=== PATIENT | male | born 1940 | race Caucasian/White ===

== ENCOUNTER 2021-02-17 12:07 | Inpatient (IN) | payer OTHER, SELFPAY ==
[~2021-02-17] VITALS: Ht 182.9 cm; Wt 79.8 kg
[2021-02-17 12:19] VITALS: BP_SYST 126
[2021-02-17] MEDS ORDERED: NACL 0.9% 1,000 ML IV SCH (13:00)
[2021-02-17] MEDS ORDERED: NS 500 ML IV ONE (13:45)
[2021-02-17 15:08] LABS: MEAN CORPUSCULAR HEMOGLOBIN 34 pg (27-31); MEAN CORPUSCULAR HGB CONC 35 % (32-36); MEAN CORPUSCULAR VOLUME 98 fL (79.0-98.0); PLATELET COUNT (AUTO) 204 K/uL (130-430); RED CELL DISTRIBUTION WIDTH 15.6 % (9.0-15.0); WHITE BLOOD COUNT (AUTO) 7.6 K/uL (4.8-10.8)
[2021-02-17 15:18] LABS: HEMOGLOBIN 6.4 g/dL (14.0-18.0); RED BLOOD CELL COUNT(AUTO) 1.88 MIL/uL (4.2-6.2)
[2021-02-17 15:19] LABS: HEMATOCRIT 18.4 % (36-54)
[2021-02-17 15:23] LABS: ANION GAP 8 (5-15); CALCIUM 7.3 mg/dL (8.4-11.0); CHLORIDE 97 mmol/L (98-107); CREATININE 5.68 mg/dL (0.55-1.30); GLUCOSE 103 mg/dL (70-99); SODIUM SERUM 135 mmol/L (136-145); UREA NITROGEN, BLOOD 47 mg/dL (8-21)
[2021-02-17 15:25] LABS: PROTHROMBIN TIME 10.9 SECS (9.5-12.5)
[2021-02-17 15:32] LABS: ALANINE AMINOTRANSFERASE 19 U/L (12-78); ALBUMIN 2.7 g/dL (3.4-4.8); ASPARTATE AMINOTRANSFERASE 24 U/L (10-37); TOTAL BILIRUBIN 1.1 mg/dL (0.0-1.0)
[2021-02-17 18:45] VITALS: BP_SYST 126
[2021-02-17 20:00] VITALS: BP_SYST 155
[2021-02-17] MEDS ORDERED: cloNIDine HCL 0.1 MG TABLET GT PRN (20:45)
[2021-02-17] MEDS: DIPHENHYDRAMINE HCL 12.5 MG/5 ML UDC GT SCH (22:10)
[2021-02-18 01:22] VITALS: BP_SYST 141
[2021-02-18] MEDS ORDERED: LORA10TA7 GT (02:32)
[2021-02-18] MEDS ORDERED: GABA-529 GT (02:32)
[2021-02-18] MEDS ORDERED: LIP40 GT (02:32)
[2021-02-18] MEDS ORDERED: COLL100 GT (02:32)
[2021-02-18] MEDS ORDERED: FOLI-43 GT (02:32)
[2021-02-18] MEDS ORDERED: ALLO100T GT (02:32)
[2021-02-18] MEDS ORDERED: CARV3.1246 GT (02:32)
[2021-02-18] MEDS ORDERED: IPRA4AER INH (02:50)
[2021-02-18] MEDS ORDERED: ZINC50TA69 GT (02:50)
[2021-02-18] MEDS ORDERED: REN800 PO (02:50)
[2021-02-18] MEDS ORDERED: INSU100V SQ (02:50)
[2021-02-18] MEDS ORDERED: NEPH GT (02:50)
[2021-02-18 08:00] VITALS: BP_SYST 149
[2021-02-18] MEDS: DIPHENHYDRAMINE HCL 12.5 MG/5 ML UDC GT SCH ×3 (08:29→21:51)
[2021-02-18 09:51] LABS: ANION GAP 10 (5-15); CALCIUM 7.5 mg/dL (8.4-11.0); CHLORIDE 98 mmol/L (98-107); CREATININE 5.87 mg/dL (0.55-1.30); GLUCOSE 105 mg/dL (70-99); POTASSIUM 4.3 mmol/L (3.5-5.1); SODIUM SERUM 137 mmol/L (136-145); UREA NITROGEN, BLOOD 52 mg/dL (8-21)
[2021-02-18 10:00] LABS: BASOPHILS # (AUTO) 0.1 K/uL (0.0-0.2); BASOPHILS % (AUTO) 0.8 % (0.0-2.0); EOSINOPHILS # (AUTO) 0.2 K/uL (0.0-0.4); EOSINOPHILS % (AUTO) 2.3 % (0.0-4.0); LYMPHOCYTES % (AUTO) 11.9 % (20.5-51.5); MEAN CORPUSCULAR HEMOGLOBIN 34 pg (27-31); MEAN CORPUSCULAR HGB CONC 34 % (32-36); MEAN CORPUSCULAR VOLUME 99 fL (79.0-98.0); MONOCYTES # (AUTO) 0.9 K/uL (0.0-1.0); MONOCYTES % (AUTO) 10.3 % (1.7-9.3); NEUTROPHILS # (AUTO) 6.5 K/uL (1.8-7.7); NEUTROPHILS % (AUTO) 74.7 % (40.0-70.0); PLATELET COUNT (AUTO) 224 K/uL (130-430); RED CELL DISTRIBUTION WIDTH 19.9 % (9.0-15.0); WHITE BLOOD COUNT (AUTO) 8.7 K/uL (4.8-10.8)
[2021-02-18] MEDS ORDERED: DOCUSATE SODIUM 100 MG/10 ML UDC PO PRN (10:00)
[2021-02-18 10:03] LABS: RED BLOOD CELL COUNT(AUTO) 1.94 MIL/uL (4.2-6.2)
[2021-02-18 10:05] LABS: HEMATOCRIT 19.3 % (36-54); HEMOGLOBIN 6.6 g/dL (14.0-18.0)
[2021-02-18] MEDS: SEVELAMER CARBONATE 800 MG TABLET PO SCH ×2 (13:02→17:51)
[2021-02-18 14:00] VITALS: BP_SYST 118
[2021-02-18 19:20] VITALS: BP_SYST 148
[2021-02-18] MEDS: CARVEDILOL 3.125 MG TABLET (COREG) PO SCH (21:57)
[2021-02-18] MEDS: ATORVASTATIN 20 MG TABLET PO SCH (21:58)
[2021-02-19] VITALS: BP_SYST 138
[2021-02-19] MEDS ORDERED: LEVOFLOXACIN IN DEXTROSE 5 % 100 ML IV ONE ×2 (04:15→07:30)
[2021-02-19 07:43] LABS: MEAN CORPUSCULAR HEMOGLOBIN 34 pg (27-31); MEAN CORPUSCULAR HGB CONC 34 % (32-36); MEAN CORPUSCULAR VOLUME 100 fL (79.0-98.0); PLATELET COUNT (AUTO) 259 K/uL (130-430); RED BLOOD CELL COUNT(AUTO) 2.02 MIL/uL (4.2-6.2); RED CELL DISTRIBUTION WIDTH 22.2 % (9.0-15.0); WHITE BLOOD COUNT (AUTO) 9.6 K/uL (4.8-10.8)
[2021-02-19 08:00] VITALS: BP_SYST 133
[2021-02-19] MEDS: FOLIC ACID 1 MG TABLET PO SCH (09:04)
[2021-02-19] MEDS: ALLOPURINOL 100 MG TABLET (ZYLOPRIM) PO SCH (09:04)
[2021-02-19] MEDS: DIPHENHYDRAMINE HCL 12.5 MG/5 ML UDC GT SCH ×3 (09:04→21:43)
[2021-02-19] MEDS: NEPHROVITE, (FOLIC ACID/VITAMIN B COMP W-C 1 TAB) PO SCH (09:04)
[2021-02-19] MEDS: SEVELAMER CARBONATE 800 MG TABLET PO SCH ×3 (09:04→17:50)
[2021-02-19] MEDS: CARVEDILOL 3.125 MG TABLET (COREG) PO SCH ×2 (09:05→21:43)
[2021-02-19] MEDS: LORATADINE 10 MG TABLET PO SCH (09:05)
[2021-02-19 09:18] LABS: HEMATOCRIT 20.3 % (36-54); HEMOGLOBIN 6.9 g/dL (14.0-18.0)
[2021-02-19 11:31] LABS: ANION GAP 15 (5-15); CALCIUM 8.3 mg/dL (8.4-11.0); CHLORIDE 101 mmol/L (98-107); CREATININE 6.02 mg/dL (0.55-1.30); GLUCOSE 115 mg/dL (70-99); POTASSIUM 4.4 mmol/L (3.5-5.1); SODIUM SERUM 138 mmol/L (136-145); UREA NITROGEN, BLOOD 54 mg/dL (8-21)
[2021-02-19 12:28] VITALS: BP_SYST 148
[2021-02-19 14:03] LABS: BAND % (MANUAL) 6 % (0-6); EOSINOPHILS % (MANUAL) 1 % (0-7); LYMPHOCYTES % (MANUAL) 9 % (20-46); MONOCYTES % (MANUAL) 13 % (0-11)
[2021-02-19 14:04] LABS: BASOPHILS % (MANUAL) 0 % (0-2)
[2021-02-19 16:58] VITALS: BP_SYST 111
[2021-02-19 20:00] VITALS: BP_SYST 156
[2021-02-19] MEDS: ATORVASTATIN 20 MG TABLET PO SCH (21:43)
[2021-02-20 00:14] VITALS: BP_SYST 146
[2021-02-20 06:58] LABS: BASOPHILS # (AUTO) 0.1 K/uL (0.0-0.2); BASOPHILS % (AUTO) 0.5 % (0.0-2.0); EOSINOPHILS # (AUTO) 0.1 K/uL (0.0-0.4); HEMATOCRIT 29.2 % (36-54); LYMPHOCYTES # (AUTO) 1.2 K/uL (1.0-5.5); LYMPHOCYTES % (AUTO) 11.2 % (20.5-51.5); MEAN CORPUSCULAR HEMOGLOBIN 33 pg (27-31); MEAN CORPUSCULAR HGB CONC 34 % (32-36); MEAN CORPUSCULAR VOLUME 96 fL (79.0-98.0); MONOCYTES # (AUTO) 1.2 K/uL (0.0-1.0); MONOCYTES % (AUTO) 10.6 % (1.7-9.3); NEUTROPHILS # (AUTO) 8.4 K/uL (1.8-7.7); NEUTROPHILS % (AUTO) 76.7 % (40.0-70.0); PLATELET COUNT (AUTO) 243 K/uL (130-430); RED BLOOD CELL COUNT(AUTO) 3.04 MIL/uL (4.2-6.2); RED CELL DISTRIBUTION WIDTH 14.8 % (9.0-15.0); WHITE BLOOD COUNT (AUTO) 10.9 K/uL (4.8-10.8)
[2021-02-20 07:30] VITALS: BP_SYST 148
[2021-02-20 07:51] LABS: ANION GAP 11 (5-15); CALCIUM 8.2 mg/dL (8.4-11.0); CHLORIDE 103 mmol/L (98-107); CREATININE 5.83 mg/dL (0.55-1.30); GLUCOSE 102 mg/dL (70-99); PHOSPHORUS 5.1 mg/dL (2.7-4.5); POTASSIUM 5.2 mmol/L (3.5-5.1); SODIUM SERUM 139 mmol/L (136-145); UREA NITROGEN, BLOOD 58 mg/dL (8-21)
[2021-02-20] MEDS: FOLIC ACID 1 MG TABLET PO SCH (09:55)
[2021-02-20] MEDS: DIPHENHYDRAMINE HCL 12.5 MG/5 ML UDC GT SCH ×3 (09:55→22:02)
[2021-02-20] MEDS: SEVELAMER CARBONATE 800 MG TABLET PO SCH ×3 (09:55→17:36)
[2021-02-20] MEDS: CARVEDILOL 3.125 MG TABLET (COREG) PO SCH (09:55)
[2021-02-20] MEDS: ALLOPURINOL 100 MG TABLET (ZYLOPRIM) PO SCH (09:55)
[2021-02-20] MEDS: LORATADINE 10 MG TABLET PO SCH (09:55)
[2021-02-20] MEDS: NEPHROVITE, (FOLIC ACID/VITAMIN B COMP W-C 1 TAB) PO SCH (09:55)
[2021-02-20 11:00] LABS: TOTAL IRON BIND. CAPACITY 173 ug/dL (250-450)
[2021-02-20 12:23] VITALS: BP_SYST 141
[2021-02-20 16:40] VITALS: BP_SYST 130
[2021-02-20] MEDS: METOPROLOL TARTRATE 25 MG TABLET PO SCH (22:02)
[2021-02-21] VITALS (7 sets, daily range): BP systolic 116–148
[2021-02-21 07:03] LABS: BASOPHILS # (AUTO) 0.1 K/uL (0.0-0.2); BASOPHILS % (AUTO) 0.6 % (0.0-2.0); EOSINOPHILS # (AUTO) 0.1 K/uL (0.0-0.4); EOSINOPHILS % (AUTO) 0.5 % (0.0-4.0); HEMATOCRIT 30.4 % (36-54); HEMOGLOBIN 10.3 g/dL (14.0-18.0); LYMPHOCYTES # (AUTO) 1.4 K/uL (1.0-5.5); LYMPHOCYTES % (AUTO) 10.9 % (20.5-51.5); MEAN CORPUSCULAR HEMOGLOBIN 33 pg (27-31); MEAN CORPUSCULAR HGB CONC 34 % (32-36); MEAN CORPUSCULAR VOLUME 97 fL (79.0-98.0); MONOCYTES # (AUTO) 1.4 K/uL (0.0-1.0); MONOCYTES % (AUTO) 10.6 % (1.7-9.3); NEUTROPHILS # (AUTO) 10.2 K/uL (1.8-7.7); NEUTROPHILS % (AUTO) 77.4 % (40.0-70.0); PLATELET COUNT (AUTO) 291 K/uL (130-430); RED BLOOD CELL COUNT(AUTO) 3.14 MIL/uL (4.2-6.2); RED CELL DISTRIBUTION WIDTH 15.3 % (9.0-15.0); WHITE BLOOD COUNT (AUTO) 13.2 K/uL (4.8-10.8)
[2021-02-21 08:31] LABS: ANION GAP 12 (5-15); CALCIUM 8.7 mg/dL (8.4-11.0); CHLORIDE 98 mmol/L (98-107); CREATININE 5.61 mg/dL (0.55-1.30); GLUCOSE 121 mg/dL (70-99); POTASSIUM 5.2 mmol/L (3.5-5.1); SODIUM SERUM 137 mmol/L (136-145); UREA NITROGEN, BLOOD 48 mg/dL (8-21)
[2021-02-21] MEDS ORDERED: levoFLOXacin 250 MG TABLET PO SCH (09:00)
[2021-02-21] MEDS: DIPHENHYDRAMINE HCL 12.5 MG/5 ML UDC GT SCH ×2 (09:17→15:12)
[2021-02-21] MEDS: NEPHROVITE, (FOLIC ACID/VITAMIN B COMP W-C 1 TAB) PO SCH (09:18)
[2021-02-21] MEDS: FOLIC ACID 1 MG TABLET PO SCH (09:18)
[2021-02-21] MEDS: SEVELAMER CARBONATE 800 MG TABLET PO SCH ×3 (09:18→18:27)
[2021-02-21] MEDS: ALLOPURINOL 100 MG TABLET (ZYLOPRIM) PO SCH (09:19)
[2021-02-21] MEDS: METOPROLOL TARTRATE 25 MG TABLET PO SCH (09:19)
[2021-02-21] MEDS: LORATADINE 10 MG TABLET PO SCH (09:20)
[2021-02-21] MEDS ORDERED: SODIUM POLYSTYRENE SULFONATE 15 GM/60 ML UDBTL GT ONE (10:45)
[2021-02-22] MEDS ORDERED: EPOETIN ALFA 10,000 UNITS/ML VIAL SUBCUT SCH (09:00)
== END 2021-02-21 19:40 | DRG 871 ==
LOC: SED 12:07 → SMU 13:57
PROVIDERS: ADMIT Internal Medicine; ATTEND Internal Medicine
PROC: 30233N1 Transfusion of Nonautologous Red Blood Cells into Peripheral Vein, Percutaneous Approach (ICD-10-PCS; principal; 2021-02-19)
PROC: 5A1D70Z Performance of Urinary Filtration, Intermittent, Less than 6 Hours Per Day (ICD-10-PCS; 2021-02-19)
DX: A41.9 Sepsis, unspecified organism (principal); J18.9 Pneumonia, unspecified organism; N18.6 End stage renal disease; E43 Unspecified severe protein-calorie malnutrition; I12.0 Hypertensive chronic kidney disease with stage 5 chronic kidney disease or end stage renal disease; D63.8 Anemia in other chronic diseases classified elsewhere; E78.5 Hyperlipidemia, unspecified; M10.9 Gout, unspecified; G62.9 Polyneuropathy, unspecified; F03.90 Unspecified dementia, unspecified severity, without behavioral disturbance, psychotic disturbance, mood disturbance, and anxiety; Z20.822 Contact with and (suspected) exposure to COVID-19; Z79.899 Other long term (current) drug therapy; Z99.2 Dependence on renal dialysis; Z68.23 Body mass index [BMI] 23.0-23.9, adult
CPT/HCPCS: 36415; 36430; 71045; 80048; 80053; 83051; 83540; 83550; 83735; 84100; 84484; 85007; 85014; 85025; 85027; 85048; 85049-TC; 85610-TC; 85730-TC; 86870; 86886; 86900; 86901; 86920; 87040-TC; 87081; 90935; 93005; 96360; 99285; J1956; P9021; U0003

== ENCOUNTER 2021-03-08 18:40 | Inpatient (IN) | payer OTHER, SELFPAY ==
[~2021-03-08] VITALS: Ht 175.3 cm; Wt 75.9 kg
[~2021-03-08 18:40] MED LIST: ALLO100T GT; CARV3.1246 GT; COLL100 GT; FOLI-43 GT; GABA-529 GT; IPRA4AER INH; LIP40 GT; LORA10TA7 GT; NEPH GT; REN800 PO; ZINC50TA69 GT
--- NOTE | 2021-03-08 18:57 | NUR ---
ER Dr. CONTRERAS at bedside examining patient.
[2021-03-08 19:31] VITALS: BP_SYST 110
[2021-03-08 19:59] LABS: HEMATOCRIT 22.6 % (36-54); HEMOGLOBIN 7.5 g/dL (14.0-18.0); MEAN CORPUSCULAR HEMOGLOBIN 35 pg (27-31); MEAN CORPUSCULAR HGB CONC 33 % (32-36); MEAN CORPUSCULAR VOLUME 105 fL (79.0-98.0); PLATELET COUNT (AUTO) 240 K/uL (130-430); RED BLOOD CELL COUNT(AUTO) 2.16 MIL/uL (4.2-6.2); RED CELL DISTRIBUTION WIDTH 27.7 % (9.0-15.0); WHITE BLOOD COUNT (AUTO) 19.4 K/uL (4.8-10.8)
[2021-03-08 20:25] LABS: ANION GAP 6 (5-15); CALCIUM 8.8 mg/dL (8.4-11.0); CHLORIDE 97 mmol/L (98-107); CREATININE 5.55 mg/dL (0.55-1.30); GLUCOSE 124 mg/dL (70-99); POTASSIUM 4.6 mmol/L (3.5-5.1); SODIUM SERUM 134 mmol/L (136-145); UREA NITROGEN, BLOOD 59 mg/dL (8-21)
--- NOTE | 2021-03-08 20:30 | NUR ---
Patient to ER bed 3 to gown for evaluation. Side rails up.
--- NOTE | 2021-03-08 21:00 | NUR ---
PATIENT AAOX2 WITH PERIODS OF CONFUSION BIB BLS FROM [facility] D/T HGB 6.7. HISTORY OF ESRD-HD, HLD, HTN, GOUT. PT SPEAKS FOREIGN LANGUAGE BUT ABLE TO UNDERSTAND SOME KINYARWANDA. AV SHUNT TO LEFT ARM. PRESENT WITH G-TUBE AND NPO.
--- NOTE | 2021-03-08 21:00 | NUR ---
COVID SWAB COLLECTED AND MRSA SWAB COLLECTED, SENT TO LAB.
[2021-03-08 21:05] LABS: PROTHROMBIN TIME 10.7 SECS (9.5-12.5)
[2021-03-08 21:10] LABS: BAND % (MANUAL) 22 % (0-6); BASOPHILS % (MANUAL) 0 % (0-2); EOSINOPHILS % (MANUAL) 1 % (0-7); LYMPHOCYTES % (MANUAL) 9 % (20-46); MONOCYTES % (MANUAL) 2 % (0-11)
--- NOTE | 2021-03-08 21:40 | NUR ---
URINE SPECIMEN COLLECTED USING STRAIGHT CATH. PT TOLERATED WELL. ABOUT 1000 CC OUT OF LARGE SEDIMENT, MILK COLORED URINE.
[2021-03-08] MEDS ORDERED: cefTRIAXone 1 GM in D5W 50 ML IV ONE (21:45)
[2021-03-08] MEDS ORDERED: NACL 0.9% 1,000 ML IV ONE (22:00)
[2021-03-08 22:09] LABS: BILIRUBIN,URINE NEGATIVE (NEGATIVE); BLOOD, URINE 2+ (NEGATIVE); CLARITY/URINE TURBID (CLEAR); COLOR,URINE YELLOW (YELLOW); GLUCOSE,URINE NEGATIVE (NEGATIVE); KETONES,URINE NEGATIVE (NEGATIVE); LEUKOCYTE ESTERASE ,URINE 3+ (NEGATIVE); NITRITE, URINE NEGATIVE (NEGATIVE); PROTEIN URINE 2+ (NEGATIVE)
[2021-03-08 22:23] LABS: BACTERIA,URINE MANY /HPF (None Seen); MUCUS,URINE 2+ /LPF (None Seen); WBC,URINE >100 /HPF (0-3)
[2021-03-08] MEDS ORDERED: cefTRIAXone 1 GM VIAL ONE (22:34)
[2021-03-08] MEDS ORDERED: VANCOMYCIN HCL 1 GM/NS PREMIX 250 ML IV ONE (22:45)
--- NOTE | 2021-03-08 23:00 | NUR ---
# 22 gauge angiocath placed to RIGHT FA. Use of asceptic technique. Opsite placed over site. Blood return noted. Flushed with 10 cc of normal saline. No evidence of infiltration noted. Patient tolerated well.
--- NOTE | 2021-03-08 23:08 | NUR ---
Patient's code status is FULL CODE PER POLST paperwork completed and placed in chart.
[2021-03-08] MEDS ORDERED: VANCOMYCIN HCL 1000 MG/VIAL IV ONE (23:20)
--- NOTE | 2021-03-08 23:51 | NUR ---
ADPatient will be admitted to care of TELE. Admitted to TELE unit. PENDING ROOM ASSIGNMENT Belongings list completed. Complete and up to date summary report printed. SBAR report to be given at bedside with opportunity for questions.
--- NOTE | 2021-03-08 23:53 | NUR ---
Transfer to TELE via ACLS protocol. Licensed nurse present. IV present no signs or symptoms of infiltration.
[2021-03-08 23:56] VITALS: BP_SYST 97
--- NOTE | 2021-03-08 23:56 | NUR ---
RECEIVED PT FROM ER TRANSFERRED BY MOE. RECEIVED REPORT FROM JACOBY ARIAS. PT ABLE TO HELP REPOSITION. PT TURNED TO RIGHT SIDE. IV ABX RUNNING. RIGHT 22G IV INTACT. PT SLEEPING WITH RESPIRATIONS EVEN AND UNLABORED ON RA. NO SIGNS OF DISTRESS NOTED. PT CONFUSED AND NOT ANSWERING ANY QUESTIONS. BED IN LOWEST AND LOCKED POSITION. CALL LIGHT WITHIN REACH. SAFETY PRECAUTIONS IN PLACE. WILL CONTINUE TO MONITOR.
[2021-03-09] VITALS: BP_SYST 108
--- NOTE | 2021-03-09 01:55 | NUR ---
ROUNDS PT IN BED WITH EYES CLOSED. NO SIGNS OF DISTRESS NOTED. PT ON RA. IVF RUNNING. WILL CONTINUE TO MONITOR.
--- NOTE | 2021-03-09 03:56 | NUR ---
CONSULTATION PAGED/CALLED Reason for Consultation: SEPSIS Person Who was Notified: DR HOUSTON IN HOSPITAL Consulting Physician: Juan HOUSTON Superintendent General Specialty: Ordering Physician: ERIC
--- NOTE | 2021-03-09 03:57 | NUR ---
CONSULTATION PAGED/CALLED Reason for Consultation: PYELONEPHRITIS Person Who was Notified: ABHISHEK Consulting Physician: TONI Furniture Dipper Specialty: Ordering Physician: ERIC
[2021-03-09] MEDS ORDERED: PIPERACILLIN/TAZOBACTAM 3.375 GM/VIAL (ZOSYN) IV ONE (04:29)
[2021-03-09] MEDS: PIPERACILLIN/TAZO 3.375/DEX-IS 50 ML IV SCH ×3 (05:30→22:01)
--- NOTE | 2021-03-09 05:50 | NUR ---
PT REFUSED MORNING LABS
--- NOTE | 2021-03-09 07:11 | NUR ---
CLOSING NOTE PT LAYING IN BED WITH EYES CLOSED. RESPIRATIONS EVEN AND UNLABORED ON RA. NO SIGNS OF DISTRESS NOTED. ALL NEEDS MET. WILL ENDORSE TO DAY RN. SAFETY PRECAUTIONS IN PLACE.
[2021-03-09 08:00] VITALS: BP_SYST 126
--- NOTE | 2021-03-09 08:30 | NUR ---
RN NOTES: Checked patency and placement of G tube. Started tube feeding with Nephro formula as ordered by MD. Water flush done prior to start of feeding. HOB elevated.
--- NOTE | 2021-03-09 10:08 | NUR ---
Nutrition Update Domingo Scale 14 noted. Pt admitted for sepsis and pyelonephritis. Diet: Nepro at 49 ml/hr, Free Water Flush: 150 via GT BMI: 36.9 kg/m2 RD to follow per nutrition care standards.
[2021-03-09] MEDS ORDERED: DOCUSATE SODIUM 100 MG/10 ML UDC GT PRN (12:30)
[2021-03-09] MEDS ORDERED: IPRATROPIUM/ALBUTEROL SULFATE 120 PUFFS/4 GM INH INH PRN (12:30)
--- NOTE | 2021-03-09 12:35 | NUR ---
RN NOTES:Received new order for cardiology consult. Paged Dr. Jaren Ricketts. called back right away and informed him of the consult. MD to see patient sometime today.
[2021-03-09 13:01] VITALS: BP_SYST 118
[2021-03-09] MEDS: GABAPENTIN 100 MG CAPSULE GT SCH ×2 (14:36→22:00)
[2021-03-09] MEDS ORDERED: IPRATROPIUM/ALBUTEROL SULFATE 3 ML AMPUL.NEB (DUONEB) INH PRN (15:15)
--- NOTE | 2021-03-09 16:34 | NUR ---
REFUSED LABS INSPECTOR ALUMINUM BOAT INFORMED THAT PATIENT REFUSES LAB DRAW
[2021-03-09 16:50] VITALS: BP_SYST 121
[2021-03-09 19:30] VITALS: BP_SYST 117
--- NOTE | 2021-03-09 19:30 | NUR ---
INITIAL NOTE AT INITIAL ASSESSMENT, PATIENT IS RESTING IN BED, STABLE, NO SIGNS OF RESPIRATORY DISTRESS. PATIENT VERBALIZES NO PAIN. PLAN OF CARE FOR THE EVENING IS COMMUNICATED WITH THE PATIENT. PATIENT IS UNABLE TO DEMONSTRATE CORRECT USAGE OF CALL LIGHT AT THIS TIME DUE TO COGNITIVE IMPAIRMENT; FREQUENT ROUNDING WILL BE COMPLETED THROUGHOUT THE NIGHT TO MEET ALL PATIENT NEEDS. BED IS LOCKED, ALARMED, AND AT THE LOWEST LEVEL. FALL SAFETY EDUCATION PROVIDED. FALL, SAFETY, AND RESPIRATORY PRECAUTIONS WILL BE TAKEN THROUGHOUT THE SHIFT.
[2021-03-09] MEDS: ATORVASTATIN 20 MG TABLET GT SCH (22:01)
--- NOTE | 2021-03-09 22:05 | NUR ---
MED PASS NOTE SCHEDULED MEDICATIONS GIVEN AT THIS TIME, PATIENT TOLERATED WELL. CALL LIGHT IS PLACED WITHIN REACH. BED IS LOCKED, ALARMED, AND AT THE LOWEST LEVEL.
[2021-03-09] MEDS: CARVEDILOL 3.125 MG TABLET (COREG) GT SCH (22:12)
--- NOTE | 2021-03-09 22:30 | NUR ---
HYGIENE CARE NOTE PATIENT HAD ONE VOID; HYGIENE CARE IS PROVIDED AT THIS TIME, FRESH LINENS PROVIDED, AND PATIENT IS REPOSITIONED FOR COMFORT. PATIENT TOLERATED WELL. CALL LIGHT PLACED WITHIN REACH. BED IS LOCKED, ALARMED, AND AT THE LOWEST LEVEL.
[2021-03-10 01:26] VITALS: BP_SYST 139
[2021-03-10] MEDS: PIPERACILLIN/TAZO 3.375/DEX-IS 50 ML IV SCH ×3 (05:02→22:48)
--- NOTE | 2021-03-10 05:54 | NUR ---
CONSULTATION PAGED/CALLED Reason for Consultation: JIM Person Who was Notified: SIOBHAN Consulting Physician: KENN Emergency Department Technician Specialty: Ordering Physician: ESSIE
--- NOTE | 2021-03-10 06:30 | NUR ---
CLOSING NOTE NO CHANGES. PATIENT SLEPT WELL THROUGHOUT THE SHIFT, NO SHORTNESS OF BREATH NOTED. AT THIS TIME, PATIENT IS RESTING IN BED, STABLE, NO SIGNS OF RESPIRATORY DISTRESS. CALL LIGHT IS WITHIN REACH. BED IS LOCKED, ALARMED, AND AT THE LOWEST LEVEL. FALL, SAFETY, ASPIRATION, AND RESPIRATORY PRECAUTIONS HAVE BEEN TAKEN THROUGHOUT THE SHIFT. WILL CONTINUE TO MONITOR UNTIL SHIFT REPORT IS GIVEN AT BEDSIDE TO AM NURSE.
[2021-03-10 08:00] VITALS: BP_SYST 117
[2021-03-10] MEDS ORDERED: EPOETIN ALFA-EPBX 4,000 UNITS/ML VIAL SUBCUT SCH (09:00)
[2021-03-10] MEDS: NEPHROVITE, (FOLIC ACID/VITAMIN B COMP W-C 1 TAB) GT SCH (09:57)
[2021-03-10] MEDS: ALLOPURINOL 100 MG TABLET (ZYLOPRIM) GT SCH (09:57)
[2021-03-10] MEDS: LORATADINE 10 MG TABLET GT SCH (09:57)
[2021-03-10] MEDS: CARVEDILOL 3.125 MG TABLET (COREG) GT SCH (09:57)
[2021-03-10] MEDS: FOLIC ACID 1 MG TABLET GT SCH (09:57)
[2021-03-10] MEDS: GABAPENTIN 100 MG CAPSULE GT SCH ×3 (09:57→22:47)
[2021-03-10 12:00] VITALS: BP_SYST 115
[2021-03-10 14:56] LABS: BASOPHILS # (AUTO) 0.1 K/uL (0.0-0.2); BASOPHILS % (AUTO) 0.3 % (0.0-2.0); EOSINOPHILS # (AUTO) 0.3 K/uL (0.0-0.4); EOSINOPHILS % (AUTO) 1.8 % (0.0-4.0); LYMPHOCYTES # (AUTO) 0.9 K/uL (1.0-5.5); LYMPHOCYTES % (AUTO) 4.4 % (20.5-51.5); MEAN CORPUSCULAR HEMOGLOBIN 35 pg (27-31); MEAN CORPUSCULAR HGB CONC 34 % (32-36); MEAN CORPUSCULAR VOLUME 104 fL (79.0-98.0); MONOCYTES # (AUTO) 0.8 K/uL (0.0-1.0); MONOCYTES % (AUTO) 3.9 % (1.7-9.3); NEUTROPHILS # (AUTO) 17.3 K/uL (1.8-7.7); NEUTROPHILS % (AUTO) 89.6 % (40.0-70.0); PLATELET COUNT (AUTO) 222 K/uL (130-430); WHITE BLOOD COUNT (AUTO) 19.3 K/uL (4.8-10.8)
[2021-03-10 15:07] LABS: RED BLOOD CELL COUNT(AUTO) 1.93 MIL/uL (4.2-6.2)
[2021-03-10 15:08] LABS: HEMOGLOBIN 6.8 g/dL (14.0-18.0)
[2021-03-10 15:10] LABS: ALANINE AMINOTRANSFERASE 73 U/L (12-78); ALBUMIN 2.6 g/dL (3.4-4.8); ANION GAP 5 (5-15); ASPARTATE AMINOTRANSFERASE 67 U/L (10-37); CALCIUM 8.6 mg/dL (8.4-11.0); CHLORIDE 99 mmol/L (98-107); CREATININE 4.51 mg/dL (0.55-1.30); GLUCOSE 145 mg/dL (70-99); PHOSPHORUS 3.2 mg/dL (2.7-4.5); POTASSIUM 3.6 mmol/L (3.5-5.1); SODIUM SERUM 136 mmol/L (136-145); TOTAL BILIRUBIN 1.2 mg/dL (0.0-1.0); UREA NITROGEN, BLOOD 44 mg/dL (8-21)
[2021-03-10 16:00] VITALS: BP_SYST 108
[2021-03-10 17:17] LABS: VANCOMYCIN,RANDOM 8.9 ug/mL
[2021-03-10] MEDS: EPOETIN ALFA 10,000 UNITS/ML VIAL SUBCUT SCH (17:27)
--- NOTE | 2021-03-10 19:25 | NUR ---
INITIAL NOTE AT INITIAL ASSESSMENT, PATIENT IS RESTING IN BED, STABLE, NO SIGNS OF RESPIRATORY DISTRESS. PATIENT VERBALIZES NO PAIN. PLAN OF CARE FOR THE EVENING IS COMMUNICATED WITH THE PATIENT. PATIENT IS UNABLE TO DEMONSTRATE CORRECT USAGE OF CALL LIGHT AT THIS TIME DUE TO COGNITIVE IMPAIRMENT; FREQUENT ROUNDING WILL BE COMPLETED THROUGHOUT THE NIGHT TO MEET ALL PATIENT NEEDS. BED IS LOCKED, ALARMED, AND AT THE LOWEST LEVEL. FALL SAFETY EDUCATION PROVIDED. FALL, SAFETY, ASPIRATION, AND RESPIRATORY PRECAUTIONS WILL BE TAKEN THROUGHOUT THE SHIFT.
[2021-03-10 19:35] VITALS: BP_SYST 114
[2021-03-10] MEDS ORDERED: VANCOMYCIN HCL 1,000 MG in NS 250 ML IV ONE (21:00)
--- NOTE | 2021-03-10 21:15 | NUR ---
HYGIENE CARE NOTE PATIENT HAD ONE BOWEL MOVEMENT; HYGIENE CARE IS PROVIDED AT THIS TIME, FRESH LINENS PROVIDED, AND PATIENT IS REPOSITIONED FOR COMFORT. PATIENT TOLERATED WELL. CALL LIGHT PLACED WITHIN REACH. BED IS LOCKED, ALARMED, AND AT THE LOWEST LEVEL.
[2021-03-10] MEDS: METOPROLOL TARTRATE 25 MG TABLET PO SCH (22:47)
[2021-03-10] MEDS: ATORVASTATIN 20 MG TABLET GT SCH (22:47)
[2021-03-11] VITALS: BP_SYST 107
--- NOTE | 2021-03-11 02:15 | NUR ---
BT INITIATION: Consent signed per GRANDDAUGHTER agreeing to administration of blood. Blood has been type and crossmatched. Blood sent from blood bank. Information on unit of blood checked against patient wristband at bedside by two nurses. All information matches. Patient or responsible libertarian informed of potential complications associated with blood transfusion. Informed of possible transfusion reaction symptoms. Aware of need to notify nurse at once of itching, shortness of breath, flushing, feeling of impending doom, or other symptoms not previously present. Vital signs taken within 5 minutes prior to initiation of transfusion. RN will remain with patient for first 15 minutes of transfusion at which time vital signs will be re-assessed.
[2021-03-11] MEDS: PIPERACILLIN/TAZO 3.375/DEX-IS 50 ML IV SCH ×3 (05:39→21:01)
--- NOTE | 2021-03-11 06:22 | NUR ---
CLOSING NOTE PATIENT RECEIVED ONE UNIT OF PRBC, HE TOLERATED WELL. PATIENT SLEPT WELL THROUGHOUT THE SHIFT, NO SHORTNESS OF BREATH NOTED. AT THIS TIME, PATIENT IS RESTING IN BED, STABLE, NO SIGNS OF RESPIRATORY DISTRESS. CALL LIGHT IS WITHIN REACH. BED IS LOCKED, ALARMED, AND AT THE LOWEST LEVEL. FALL, SAFETY, ASPIRATION, AND RESPIRATORY PRECAUTIONS HAVE BEEN TAKEN THROUGHOUT THE SHIFT. WILL CONTINUE TO MONITOR UNTIL SHIFT REPORT IS GIVEN AT BEDSIDE TO AM NURSE.
[2021-03-11 08:00] VITALS: BP_SYST 119
--- NOTE | 2021-03-11 08:00 | NUR ---
OPENING NOTE AWAKE, ALERT TO NAME AND PLACE AT THIS TIME. DENIES ANY PAIN OR SHORTNESS OF BREATH. IV ACCESS INTACT. TUBE FEEDING INFUSING WELL AT 49ML/HR. SHUNT AT LEFT ARM INTACT. PLAN OF CARE EXPLAINED TO PATIENT BUT HE IS CONFUSED. SAFETY CHECKS DONE. CALL LIGHT WITHIN REACH. WILL MONITOR.
[2021-03-11] MEDS: NEPHROVITE, (FOLIC ACID/VITAMIN B COMP W-C 1 TAB) GT SCH (09:07)
[2021-03-11] MEDS: GABAPENTIN 100 MG CAPSULE GT SCH ×3 (09:07→20:46)
[2021-03-11] MEDS: LORATADINE 10 MG TABLET GT SCH (09:07)
[2021-03-11] MEDS: METOPROLOL TARTRATE 25 MG TABLET PO SCH ×2 (09:08→20:48)
[2021-03-11] MEDS: FOLIC ACID 1 MG TABLET GT SCH (09:08)
[2021-03-11] MEDS: ALLOPURINOL 100 MG TABLET (ZYLOPRIM) GT SCH (09:08)
[2021-03-11 11:35] VITALS: BP_SYST 103
[2021-03-11 15:38] VITALS: BP_SYST 94
--- NOTE | 2021-03-11 16:30 | NUR ---
BT BY HEMODIALYSIS NURSE Consent signed per patient agreeing to administration of blood. Blood has been type and crossmatched. Blood sent from blood bank. Information on unit of blood checked against patient wristband at bedside by two nurses. All information matches. Patient or responsible alliance party informed of potential complications associated with blood transfusion. Informed of possible transfusion reaction symptoms. Aware of need to notify nurse at once of itching, shortness of breath, flushing, feeling of impending doom, or other symptoms not previously present. Vital signs taken within 5 minutes prior to initiation of transfusion. Hemodialysis nurse Kenisha and RN will remain with patient for first 15 minutes of transfusion at which time vital signs will be re-assessed.
--- NOTE | 2021-03-11 16:31 | NUR ---
ID MD DR HOUSTON, DEV WAS CALLED, RE: VRE OF THE URINE. SPOKE TO
--- NOTE | 2021-03-11 16:35 | NUR ---
CONTACT PREC SPOKE TO DR. HOUSTON AND INFORMED HIM OF URINE CULTURE. PLACED ON ISOLATION ORDERED.
[2021-03-11 20:00] VITALS: BP_SYST 111
--- NOTE | 2021-03-11 20:00 | NUR ---
Received patient from am shift nurse. Patient is A&Ox1-2 and is unable to make needs known. No s/s of distress is noted. Chest rise is even and unlabored with CTA on RA. Normal Heart sounds S1 & S2 present but has a tachycardic rhythm. Patient is anuric and received dialysis during am shift where 1400l of fluid was removed. Patient also received a blood transfusion during dialysis. Active bowel sounds x4, with no abd tenderness with palpation. Patient is receiving continuos GT feeding and had no residual at the time of assessment. Bed alarm is in place, bed is in the lowest position with bed rails up. Will monitor throughout the shift for safety.
[2021-03-11] MEDS: ATORVASTATIN 20 MG TABLET GT SCH (20:47)
[2021-03-12 00:54] VITALS: BP_SYST 105
--- NOTE | 2021-03-12 01:00 | NUR ---
Patient is sleeping with no s/s of distress is noted. GT feeding of nephro is still running at 49ml/hr. Call light is within reach, bed is in the lowest position with bed rails up. Will continue to monitor throughout the shift.
--- NOTE | 2021-03-12 03:30 | NUR ---
Hygiene care given to patient by Aid. Patient continues to rest comfortably.
[2021-03-12] MEDS: PIPERACILLIN/TAZO 3.375/DEX-IS 50 ML IV SCH ×3 (05:33→21:55)
--- NOTE | 2021-03-12 06:23 | NUR ---
Patient is currently in bed awake and watching television. No s/s of distress is noted. GT is currently infusing nephro at 49ml/hr as ordered and continues to tolerate it well. Morning dose of zosyn was administered as ordered. All current needs have been met and call light is within reach, bed is in lowest position with bed rails up. Will differ further care to am shift nurse for continuity of care.
[2021-03-12 07:12] LABS: BASOPHILS # (AUTO) 0.1 K/uL (0.0-0.2); BASOPHILS % (AUTO) 0.5 % (0.0-2.0); EOSINOPHILS # (AUTO) 0.2 K/uL (0.0-0.4); EOSINOPHILS % (AUTO) 1.2 % (0.0-4.0); HEMATOCRIT 30.4 % (36-54); HEMOGLOBIN 10.2 g/dL (14.0-18.0); LYMPHOCYTES # (AUTO) 1.6 K/uL (1.0-5.5); MEAN CORPUSCULAR HEMOGLOBIN 33 pg (27-31); MEAN CORPUSCULAR HGB CONC 34 % (32-36); MEAN CORPUSCULAR VOLUME 98 fL (79.0-98.0); MONOCYTES # (AUTO) 1.2 K/uL (0.0-1.0); MONOCYTES % (AUTO) 6.2 % (1.7-9.3); NEUTROPHILS # (AUTO) 16.5 K/uL (1.8-7.7); PLATELET COUNT (AUTO) 229 K/uL (130-430); RED CELL DISTRIBUTION WIDTH 16.9 % (9.0-15.0); WHITE BLOOD COUNT (AUTO) 19.7 K/uL (4.8-10.8)
[2021-03-12 07:24] LABS: ANION GAP 12 (5-15); CALCIUM 8.7 mg/dL (8.4-11.0); CHLORIDE 98 mmol/L (98-107); CREATININE 5.47 mg/dL (0.55-1.30); GLUCOSE 138 mg/dL (70-99); POTASSIUM 4.5 mmol/L (3.5-5.1); SODIUM SERUM 135 mmol/L (136-145); UREA NITROGEN, BLOOD 49 mg/dL (8-21); VANCOMYCIN,RANDOM 22.4 ug/mL
--- NOTE | 2021-03-12 07:40 | NUR ---
OPENING NOTES: RECEIVED REPORT FROM DIVISION SERVICE MANAGER NURSE. PATIENT IS AWAKE SITTING IN BED. TOLERATED OXYGEN ON ROOM AIR WITH NO DISTRESS NOTED. IV LINE PATENT AND INTACT WITH NO INFILTRATION NOTED. G-TUBE FEEDING PATENT. PATIENT STABLE AT THIS TIME. SAFETY, FALL, ISOLATION, AND ASPIRATION PRECAUTIONS PRECAUTIONS ARE IN PLACE. BED LOCKED IN LOWEST POSITION AND CALL LIGHT IN REACH. WILL CONTINUE TO MONITOR PATIENT FOR ANY CHANGES.
[2021-03-12 08:00] VITALS: BP_SYST 116
[2021-03-12] MEDS: FOLIC ACID 1 MG TABLET GT SCH (08:56)
[2021-03-12] MEDS: LORATADINE 10 MG TABLET GT SCH (08:57)
[2021-03-12] MEDS: METOPROLOL TARTRATE 25 MG TABLET PO SCH ×2 (08:57→22:07)
[2021-03-12] MEDS: ALLOPURINOL 100 MG TABLET (ZYLOPRIM) GT SCH (08:57)
[2021-03-12] MEDS: NEPHROVITE, (FOLIC ACID/VITAMIN B COMP W-C 1 TAB) GT SCH (08:57)
[2021-03-12] MEDS: GABAPENTIN 100 MG CAPSULE GT SCH ×3 (08:57→22:07)
[2021-03-12 11:47] LABS: NEUTROPHILS % (AUTO) 84.1 % (40.0-70.0)
[2021-03-12 13:38] VITALS: BP_SYST 103
--- NOTE | 2021-03-12 16:44 | NUR ---
Dietitian Recommendations * Continue Nepro at 49 ml/hr via GT Provides: 2117 kcal/day, 95 gm protein/day, and 855 ml free water/day Meets: 95% of lower end of estimated caloric needs and 86% of upper end of estimated protein needs * Physician to clarify Free Water Flush order LP, RD Please refer to Nutrition Assessment for details. Addendum: 03/12/21 at [address] Amended: Links added.
[2021-03-12 18:17] VITALS: BP_SYST 136
--- NOTE | 2021-03-12 18:40 | NUR ---
CLOSING NOTES: PATIENT IS AWAKE SITTING IN BED. TOLERATED OXYGEN ON ROOM AIR WITH NO DISTRESS NOTED. IV LINE PATENT AND INTACT WITH NO INFILTRATION NOTED. G-TUBE FEEDING PATENT. PATIENT STABLE AT THIS TIME. SAFETY, FALL, ISOLATION, AND ASPIRATION PRECAUTIONS PRECAUTIONS REMAINED IN PLACE. BED LOCKED IN LOWEST POSITION AND CALL LIGHT IN REACH. WILL ENDORSE PATIENT CARE TO ONCOMING DIRECTOR HUMAN SERVICES NURSE.
[2021-03-12 20:00] VITALS: BP_SYST 116
--- NOTE | 2021-03-12 20:30 | NUR ---
Received patient from am shift nurse. Patient is unable to make needs known has no notable s/s of distress. Chest rise is even and unlabored on RA. Normal heart sounds present S1 & S2 present with a tachycardic rhythm. GT infusion is running at 49ml/hr and patient is tolerating it well with 10ml residual. Patient is awake and lying in bed. Bed is in the lowest position, alarm is on with bed rails up. Will continue to monitor throughout the shift for safety.
--- NOTE | 2021-03-12 21:27 | NUR ---
CONSULTATION CALLED FOR DR. CATALINA HAY IS TAPER AND FLOATER FOR CONSULT OF ESRD ORDER BY DR. MENEZES SPOKE WITH KENDY
[2021-03-12] MEDS: ATORVASTATIN 20 MG TABLET GT SCH (22:04)
[2021-03-13 01:42] VITALS: BP_SYST 93
[2021-03-13] MEDS: PIPERACILLIN/TAZO 3.375/DEX-IS 50 ML IV SCH ×3 (05:21→21:50)
--- NOTE | 2021-03-13 06:25 | NUR ---
Patient is in bed resting No s/s of distress is noted. GT is infusing and patient is tolerating it well. IV line is patent with no s/s of infiltration and saline locked. All current needs have been met. Bed is in the lowest position, with bed rails up and bed alarm on for safety. Will differ further care to am shift nurse for continuity of care.
[2021-03-13 08:00] VITALS: BP_SYST 98
[2021-03-13] MEDS: METOPROLOL TARTRATE 25 MG TABLET PO SCH ×2 (09:00→21:27)
[2021-03-13] MEDS: ALLOPURINOL 100 MG TABLET (ZYLOPRIM) GT SCH (09:13)
[2021-03-13] MEDS: LORATADINE 10 MG TABLET GT SCH (09:13)
[2021-03-13] MEDS: NEPHROVITE, (FOLIC ACID/VITAMIN B COMP W-C 1 TAB) GT SCH (09:13)
[2021-03-13] MEDS: GABAPENTIN 100 MG CAPSULE GT SCH ×3 (09:13→21:36)
[2021-03-13] MEDS: FOLIC ACID 1 MG TABLET GT SCH (09:13)
[2021-03-13 12:00] VITALS: BP_SYST 90
[2021-03-13 16:00] VITALS: BP_SYST 100
--- NOTE | 2021-03-13 16:48 | NUR ---
pt awake,confused,had HD done and removed 700ml per HD.AV shunt on left arm with good bruit, on tube feeding nepro runs @ 49cc per hr via GT,no residual per GT,incontinent of 1 brown loose BM total care provided,needs attended,safety maintained.continue to monitor pt.
[2021-03-13] MEDS: EPOETIN ALFA 10,000 UNITS/ML VIAL SUBCUT SCH (17:17)
[2021-03-13 20:00] VITALS: BP_SYST 98
--- NOTE | 2021-03-13 20:00 | NUR ---
03/13 (0247 Time stamp error) Pt received resting in bed in stable cond. No apparent signs of distress. Contact precautions observed as ordered. Breathing adequately on RA. No signs of respiratory distress. HOB elevated for aspiration precautions. GTF running as ordered @ 49 ml/hr and delfin well. 5 cc residual noted at this time. ABD soft; non distended. Large/soft BM noted at this time. Ness care rendered; linen changed. Cleaned/dry. Bed in low position.
[2021-03-13] MEDS: ATORVASTATIN 20 MG TABLET GT SCH (21:38)
[2021-03-14 01:30] VITALS: BP_SYST 99
[2021-03-14 04:00] VITALS: BP_SYST 127
--- NOTE | 2021-03-14 04:32 | NUR ---
Pt noted sleeping in bed; easy to arouse. No apparent signs of distress. HOB remains elevated for aspiration precautions. GTF running as ordered; No abd distention noted. Breathing adequately on RA. FC continue draining clr/yellow urine. Repositioned for comfort. Bed in low position.
[2021-03-14] MEDS: PIPERACILLIN/TAZO 3.375/DEX-IS 50 ML IV SCH (05:42)
[2021-03-14 07:10] LABS: BASOPHILS # (AUTO) 0.1 K/uL (0.0-0.2); BASOPHILS % (AUTO) 0.5 % (0.0-2.0); EOSINOPHILS # (AUTO) 0.3 K/uL (0.0-0.4); EOSINOPHILS % (AUTO) 1.7 % (0.0-4.0); HEMATOCRIT 27.7 % (36-54); HEMOGLOBIN 9.4 g/dL (14.0-18.0); LYMPHOCYTES # (AUTO) 1.6 K/uL (1.0-5.5); MEAN CORPUSCULAR HEMOGLOBIN 33 pg (27-31); MEAN CORPUSCULAR HGB CONC 34 % (32-36); MEAN CORPUSCULAR VOLUME 97 fL (79.0-98.0); MONOCYTES # (AUTO) 1.1 K/uL (0.0-1.0); MONOCYTES % (AUTO) 5.6 % (1.7-9.3); NEUTROPHILS # (AUTO) 16.5 K/uL (1.8-7.7); NEUTROPHILS % (AUTO) 84.2 % (40.0-70.0); PLATELET COUNT (AUTO) 201 K/uL (130-430); RED BLOOD CELL COUNT(AUTO) 2.85 MIL/uL (4.2-6.2); RED CELL DISTRIBUTION WIDTH 16.2 % (9.0-15.0); WHITE BLOOD COUNT (AUTO) 19.6 K/uL (4.8-10.8)
[2021-03-14 07:25] LABS: ANION GAP 15 (5-15); CALCIUM 9.1 mg/dL (8.4-11.0); CHLORIDE 97 mmol/L (98-107); CREATININE 6.43 mg/dL (0.55-1.30); GLUCOSE 137 mg/dL (70-99); POTASSIUM 3.8 mmol/L (3.5-5.1); SODIUM SERUM 140 mmol/L (136-145); UREA NITROGEN, BLOOD 60 mg/dL (8-21)
[2021-03-14 08:00] VITALS: BP_SYST 102
[2021-03-14 08:28] LABS: VANCOMYCIN,RANDOM 14.8 ug/mL
[2021-03-14] MEDS: GABAPENTIN 100 MG CAPSULE GT SCH ×3 (08:36→21:01)
[2021-03-14] MEDS: LORATADINE 10 MG TABLET GT SCH (08:36)
[2021-03-14] MEDS: NEPHROVITE, (FOLIC ACID/VITAMIN B COMP W-C 1 TAB) GT SCH (08:36)
[2021-03-14] MEDS: ALLOPURINOL 100 MG TABLET (ZYLOPRIM) GT SCH (08:36)
[2021-03-14] MEDS: METOPROLOL TARTRATE 25 MG TABLET PO SCH ×2 (08:37→21:01)
[2021-03-14] MEDS: FOLIC ACID 1 MG TABLET GT SCH (08:37)
[2021-03-14 12:00] VITALS: BP_SYST 91
[2021-03-14] MEDS: LINEZOLID 300 ML IV SCH ×2 (14:44→20:52)
[2021-03-14 16:25] VITALS: BP_SYST 100
[2021-03-14] MEDS ORDERED: VANCOMYCIN HCL 500 MG in NS 100 ML IV ONE (17:00)
--- NOTE | 2021-03-14 18:36 | NUR ---
CLOSING NOTES: PT AWAKE,CONFUSED,SINUS TACHY HR 100-110'S.AV SHUNT IN RIGHT ARM WITH GOOD BRUIT START IV ZYVOX PER DR ORDER.NO ADVERSE REACTIONS NOTED,PIV 22 GAUGE IN RIGHT HAND REMAINS PATENT AND INTACT,PT ON TUBE FEEDING NEPRO 1.8 RUNS @ 49CC PER HR VIA GT NO RESIDUAL PER GT.INCONTINENT OF LOOSE SOFT BROWN STOOL X2,KEYON CARE RENDERED, NO SKIN BREAKDOWN NOTED.TOTAL CARE PROVIDED,SAFETY MAINTAINED.CONTINUE TO MONITOR PT.
--- NOTE | 2021-03-14 19:10 | NUR ---
OPENING NOTES PATIENT RESTING, HOB ELEVATED, NO SIGNS OF ACUTE RESPIRATORY DISTRESS NOTED. CALL LIGHT WITHIN REACH, BED ALARM ON, BED AT LOWEST POSITION, BED LOCKED. RECEIVED REPORT THAT PATIENT MAY HAVE DIALYSIS TOMORROW BY SCHEDULE, GTUBE IN PLACE. FALL, RESPIRATORY, ASPIRATION, ISOLATION, AND SAFETY PRECAUTIONS IN PLACE. DISCUSSED PLAN OF CARE WITH PATIENT. WILL CONTINUE TO MONITOR.
[2021-03-14 20:00] VITALS: BP_SYST 101
[2021-03-14] MEDS: ATORVASTATIN 20 MG TABLET GT SCH (21:00)
[2021-03-15 01:29] VITALS: BP_SYST 98
--- NOTE | 2021-03-15 04:08 | NUR ---
INCONTINENCE CARE PROVIDED. NO SIGNS OF DISTRESS WHEN TURNING. WILL CONTINUE TO MONITOR.
--- NOTE | 2021-03-15 07:22 | NUR ---
CLOSING NOTES PATIENT RESTING, NO SIGNS OF ACUTE RESPIRATORY DISTRESS NOTED. CALL LIGHT WITHIN REACH, BED ALARM ON, BED AT LOWEST POSITION, BED LOCKED. G TUBE IN PLACE. FALL, RESPIRATORY, ASPIRATION, ISOLATION, AND SAFETY PRECAUTIONS IN PLACE THROUGHOUT SHIFT. ALL NEEDS MET THROUGHOUT SHIFT. WILL ENDORSE CARE TO ONCOMING SHIFT.
[2021-03-15 08:02] VITALS: BP_SYST 105
--- NOTE | 2021-03-15 08:03 | NUR ---
OPENING NOTE AWAKE, ALERT TO NAME, PLACE AND TIME. NO SHORTNESS OF BREATH ON ROOM AIR. DENIES ANY PAIN. IV ACCESS ON RIGHT ARM INTACT. TOLERATING TUBE FEEDING, 5 ML RESIDUAL, NO ABDOMINAL DISTENTION. SAFETY CHECKS DONE. CALL LIGHT WITHIN REACH. WILL MONITOR.
[2021-03-15] MEDS: GABAPENTIN 100 MG CAPSULE GT SCH ×3 (09:11→21:34)
[2021-03-15] MEDS: LORATADINE 10 MG TABLET GT SCH (09:11)
[2021-03-15] MEDS: LINEZOLID 300 ML IV SCH ×2 (09:11→21:33)
[2021-03-15] MEDS: ALLOPURINOL 100 MG TABLET (ZYLOPRIM) GT SCH (09:12)
[2021-03-15] MEDS: METOPROLOL TARTRATE 25 MG TABLET PO SCH ×2 (09:12→21:00)
[2021-03-15] MEDS: FOLIC ACID 1 MG TABLET GT SCH (09:12)
[2021-03-15] MEDS: NEPHROVITE, (FOLIC ACID/VITAMIN B COMP W-C 1 TAB) GT SCH (09:12)
--- NOTE | 2021-03-15 11:00 | NUR ---
ROUNDS PATIENT KEEPS SAYING HE WANTS TO DRINK. EXPLAINED REASON FOR NPO BUT PATIENT DID NOT SEEM TO UNDERSTAND. SAFETY CHECKS DONE. CALL LIGHT WITHIN REACH.
[2021-03-15 11:25] VITALS: BP_SYST 94
[2021-03-15] MEDS ORDERED: ACETAMINOPHEN 650 MG/20.3 ML UDC GT PRN (12:30)
--- NOTE | 2021-03-15 15:00 | NUR ---
HEMODIALYSIS HEMODIALYSIS DONE TODAY BY NURSEYANNI. ONLY 700 ML OUT BECAUSE PATIENT'S BP WAS RUNNING LOW. SAFETY CHECKS DONE. CALL LIGHT WITHIN REACH.
[2021-03-15 15:36] VITALS: BP_SYST 90
[2021-03-15] MEDS: EPOETIN ALFA 10,000 UNITS/ML VIAL SUBCUT SCH (16:07)
--- NOTE | 2021-03-15 18:48 | NUR ---
CLOSING NOTE RESTING. ALL NEEDS MET THROUGHOUT SHIFT. SAFETY CHECKS DONE. WILL ENDORSE TO NIGHT NURSE.
--- NOTE | 2021-03-15 19:20 | NUR ---
OPENING NOTES PATIENT RESTING, HOB ELEVATED, NO SIGNS OF ACUTE RESPIRATORY DISTRESS NOTED. CALL LIGHT WITHIN REACH, BED ALARM ON, BED AT LOWEST POSITION, BED LOCKED. FALL, RESPIRATORY, ASPIRATION, ISOLATION, AND SAFETY PRECAUTIONS IN PLACE. DISCUSSED PLAN OF CARE WITH PATIENT. WILL CONTINUE TO MONITOR.
[2021-03-15 20:00] VITALS: BP_SYST 96
[2021-03-15] MEDS: ATORVASTATIN 20 MG TABLET GT SCH (21:34)
[2021-03-16 00:55] VITALS: BP_SYST 113
--- NOTE | 2021-03-16 01:40 | NUR ---
PATIENT RESTING, NO SIGNS OF DISTRESS NOTED. CALL LIGHT WITHIN REACH, PRECAUTIONS IN PLACE. WILL CONTINUE TO MONITOR.
[2021-03-16 08:00] VITALS: BP_SYST 104
[2021-03-16] MEDS: METOPROLOL TARTRATE 25 MG TABLET PO SCH ×2 (08:17→20:59)
[2021-03-16] MEDS: LINEZOLID 300 ML IV SCH ×2 (08:30→20:58)
[2021-03-16] MEDS: GABAPENTIN 100 MG CAPSULE GT SCH ×3 (08:30→20:58)
[2021-03-16] MEDS: FOLIC ACID 1 MG TABLET GT SCH (08:30)
[2021-03-16] MEDS: NEPHROVITE, (FOLIC ACID/VITAMIN B COMP W-C 1 TAB) GT SCH (08:30)
[2021-03-16] MEDS: ALLOPURINOL 100 MG TABLET (ZYLOPRIM) GT SCH (08:30)
[2021-03-16] MEDS: LORATADINE 10 MG TABLET GT SCH (08:30)
--- NOTE | 2021-03-16 11:30 | NUR ---
PT BP LOW 81/54 HR 118. NOTIFIED. PT GIVEN ALBUMIN 100ML. WILL CONTINUE TO MONITOR BP. Addendum: 03/17/21 at 0656 by Itz Torres RN @[id number]
[2021-03-16 11:32] VITALS: BP_SYST 105
--- NOTE | 2021-03-16 12:20 | NUR ---
Note Pt was checked on q1' and PRN for needs and care all shift. Pt's IV in right hand intact and patent. GT intact and patent infusing feedings well. Pt next to nurses' station for close observation all shift. Call light within reach. No needs noted at this time. Tele unit attached and intact.
[2021-03-16] MEDS ORDERED: NS 500 ML IV ONE (13:45)
[2021-03-16 15:23] VITALS: BP_SYST 121
--- NOTE | 2021-03-16 17:10 | NUR ---
Note Pt asleep and then all of a sudden awakens and starts shouting out. Pt states his abdomen hurts - Tylenol PO given through GT at this time. Pt fell back to sleep. Call light within reach and bed alarm on. Pt's bed in low position and pt checked on q1' and PRN all shift for needs and care.
--- NOTE | 2021-03-16 18:10 | NUR ---
Note Pt asleep at this time. Pt calm and quiet at this time. IV in right hand intact and patent. Pt checked on q1 and PRN all shift for needs and care. Pt's bed in low position and bed alarm on at this time. Pt next to nurses station for close observation. GT site intact and patent at this time. Call light within reach.
--- NOTE | 2021-03-16 19:05 | NUR ---
RECEIVED BEDSIDE REPORT. PT IN BED ASLEEP WITH EYES CLOSED. RR EVEN AND UNLABORED ON RA. CALL LIGHT WITHIN REACH. BED RAILS UPX2. HOB ELEVATED. ALL NEEDS MEET AT THIS TIME. WILL CONTINUE TO MONITOR.
[2021-03-16] MEDS: ATORVASTATIN 20 MG TABLET GT SCH (20:58)
[2021-03-16] MEDS ORDERED: ALBUMIN HUMAN 25% 100 ML IV ONE (21:15)
[2021-03-16 21:35] VITALS: BP_SYST 81
--- NOTE | 2021-03-16 23:30 | NUR ---
PT BP LOW 81/54 HR 118. NOTIFIED. PT GIVEN ALBUMIN 100ML. WILL CONTINUE TO MONITOR BP.
[2021-03-17 00:35] VITALS: BP_SYST 132
[2021-03-17 02:00] VITALS: BP_SYST 103
--- NOTE | 2021-03-17 02:00 | NUR ---
BP SUSTAINING WITH SBP OVER 1OO. PT IN BED RESTING WITH EYES CLOSED. PT CONTINUE TO RECEIVE TUBE FEEDING AT 49ML/HR. PT TOLERATING WELL. HOB ELEVATED. PT ON CONTACT PRECAUTIONS FOR VRE IN URINE. ALL OTHER NEEDS MEET AT THIS TIME. WILL CONTINUE TO MONITOR.
--- NOTE | 2021-03-17 06:58 | NUR ---
WILL ENDORSE CARE TO DAY RN
[2021-03-17 08:00] VITALS: BP_SYST 106
--- NOTE | 2021-03-17 08:15 | NUR ---
Opening Notes Patient is awake, alert and oriented x2. Pt speaks only Tagalog, able to follow simple commands. No resp distress noted. Breathing is even and unlabored. Pt denies any pain at this time. Pt is c/o "a fever". Temporal temperature noted at 97.1F. Reassured pt that he is afebrile. IV site on right FA 22 gauge intact, saline lock. Pt remains on bedrest. GTUBE site clean and intact. TF: Nephro @ 49 cc/hr, infusing well. Confirmed placement with stethoscope. No residual noted. Pt was repositioned in bed with pillows. Safety and fall precautions in place. Bed in lowest position, alarm on, locked. Will continue to monitor. Addendum: 03/17/21 at 1841 by Angelique Flynn RN AV shunt noted on left upper arm. Bruit present, thrill is difficult to palpate. Confirmed thrill with dialysis nurse using stethoscope.
[2021-03-17] MEDS: LINEZOLID 300 ML IV SCH ×2 (08:27→19:58)
[2021-03-17] MEDS: LORATADINE 10 MG TABLET GT SCH (08:27)
[2021-03-17] MEDS: GABAPENTIN 100 MG CAPSULE GT SCH ×3 (08:28→20:12)
[2021-03-17] MEDS: NEPHROVITE, (FOLIC ACID/VITAMIN B COMP W-C 1 TAB) GT SCH (08:28)
[2021-03-17] MEDS: METOPROLOL TARTRATE 25 MG TABLET PO SCH ×2 (08:28→20:16)
[2021-03-17] MEDS: FOLIC ACID 1 MG TABLET GT SCH (08:28)
[2021-03-17] MEDS: ALLOPURINOL 100 MG TABLET (ZYLOPRIM) GT SCH (08:28)
[2021-03-17 09:52] LABS: BASOPHILS # (AUTO) 0.1 K/uL (0.0-0.2); BASOPHILS % (AUTO) 0.4 % (0.0-2.0); EOSINOPHILS # (AUTO) 0.1 K/uL (0.0-0.4); EOSINOPHILS % (AUTO) 0.7 % (0.0-4.0); LYMPHOCYTES # (AUTO) 2.5 K/uL (1.0-5.5); LYMPHOCYTES % (AUTO) 15.1 % (20.5-51.5); MEAN CORPUSCULAR HEMOGLOBIN 34 pg (27-31); MEAN CORPUSCULAR HGB CONC 34 % (32-36); MEAN CORPUSCULAR VOLUME 101 fL (79.0-98.0); MONOCYTES % (AUTO) 5.7 % (1.7-9.3); NEUTROPHILS % (AUTO) 78.1 % (40.0-70.0); PLATELET COUNT (AUTO) 144 K/uL (130-430); WHITE BLOOD COUNT (AUTO) 16.7 K/uL (4.8-10.8)
[2021-03-17 09:55] LABS: RED BLOOD CELL COUNT(AUTO) 1.75 MIL/uL (4.2-6.2)
[2021-03-17 09:58] LABS: HEMATOCRIT 17.6 % (36-54)
--- NOTE | 2021-03-17 09:58 | NUR ---
CRITICAL LAB: Laboratory called with critical lab value hGB 6.0, HCT 17.6. Medical record number and patient name verified. Read back of values done. DR REYES notified of value. NEW orders given at this time.
--- NOTE | 2021-03-17 10:00 | NUR ---
Notes Patient is laying in bed, resting. No resp distress. No signs of pain. Repositoned in bed with pillows. Pending dialysis.
--- NOTE | 2021-03-17 10:17 | NUR ---
CONSULT GI LOW HEMOGLOBIN JUAN TORIBIO [phone] S/W RICKY EXCHANGE
[2021-03-17 10:35] LABS: ALANINE AMINOTRANSFERASE 186 U/L (12-78); ALBUMIN 2.7 g/dL (3.4-4.8); ANION GAP 24 (5-15); ASPARTATE AMINOTRANSFERASE 65 U/L (10-37); CALCIUM 8.7 mg/dL (8.4-11.0); CHLORIDE 97 mmol/L (98-107); GLUCOSE 115 mg/dL (70-99); POTASSIUM 4.2 mmol/L (3.5-5.1); SODIUM SERUM 140 mmol/L (136-145); TOTAL BILIRUBIN 0.7 mg/dL (0.0-1.0)
[2021-03-17 12:00] VITALS: BP_SYST 117
--- NOTE | 2021-03-17 12:19 | NUR ---
CRITICAL LAB: Laboratory called with critical lab value bun 138, creatinine 8.05. Medical record number and patient name verified. Read back of values done. DR. RODRIGUEZ WAS PAGED of value. AWAITING CALLBACK.
[2021-03-17 12:24] LABS: CREATININE 8.05 mg/dL (0.55-1.30); UREA NITROGEN, BLOOD 138 mg/dL (8-21)
[2021-03-17 12:32] LABS: PHOSPHORUS 8.5 mg/dL (2.7-4.5)
--- NOTE | 2021-03-17 12:50 | NUR ---
Dialysis session started
--- NOTE | 2021-03-17 14:00 | NUR ---
Notes Patient is sleeping at this time. No resp distress. No signs of pain. Will continue to monitor.
[2021-03-17] MEDS ORDERED: ALBUMIN HUMAN 25% 200 ML IV ONE (14:40)
[2021-03-17] MEDS ORDERED: ALBUMIN HUMAN 25% 50 ML IV ONE (14:45)
[2021-03-17 16:00] VITALS: BP_SYST 104
--- NOTE | 2021-03-17 16:00 | NUR ---
Hemodialysis NOT COMPLETED d/t low BP Addendum: 03/17/21 at 1840 by Angelique Flynn RN Per Hemodialysis nurse, nephrology is aware. Addendum: 03/17/21 at 184 by Angelique Flynn RN DR. GALAN (NEPHRO) aware.
--- NOTE | 2021-03-17 16:30 | NUR ---
Blood Transfusion STARTED Patient is laying in bed. Blood transfusion, tolerating well. Pre-transfusion vital signs within normal limits. Will continue to monitor.
--- NOTE | 2021-03-17 16:55 | NUR ---
Blood Transfusion Completed. Vital signs within normal limits. Will endorse to next shift to start next transfusion.
[2021-03-17] MEDS: EPOETIN ALFA 10,000 UNITS/ML VIAL SUBCUT SCH (17:49)
--- NOTE | 2021-03-17 18:37 | NUR ---
Closing Notes Patient is awake, alert and oriented x1. No resp distress noted. Breathing is even and unlabored. No signs of pain at this time. IV site on right FA 22 gauge intact at this time, blood transfusion still infusing. Will endorse to next shift to hand the last PRBC unit. GTUBE site intact, dressing changed. TF: Nepro @ 49 cc/hr, infusing well. FWF 150 cc, tolerated well. Pt remains on bedrest at this time. Occult stool sample needed, will endorse. Will also endorse to morning nurse to follow up with nephrology about makeup hemodialysis session. All needs met. Safety and fall precautions in place. Bed in lowest position, alarm on, locked. Will continue to monitor.
--- NOTE | 2021-03-17 18:47 | NUR ---
Nutrition F/U RD reviewed pt's current EMR record including diet Hx, physician notes, nursing notes, pertinent labs/meds/procedures, care trends, and care activity. Admission Dx: Sepsis and pyelonephritis PMH: ESRD on HD, HTN, HLD, gout per physician notes SARS-CoV-2 Ag (Rapid) Negative 03/08 Current Diet Order/Nutrition Support: Nepro at 49 ml/hr, Free Water Flush: 150 via GT x8 days Subjective Info: RD bedside visit deferred d/t high RD load. Per EMR review, pt is pending GI consult d/t drop in H/H; plan for occult blood collection; no GRV noted today; pt appears to be tolerating TF well. Current TF prescription is adequate/appropriate. Pertinent Medications: Reviewed Pertinent Labs: Reviewed Height (Feet) 5 feet Height (Inches) 9.00 inches Weight (Pounds) 163 pounds -- no changes since 03/17 Weight (Calculated Kilograms) 73.957102 kilograms Patient Weight 73.936 kg Body Mass Index 24.07 kg/m2 %IBW 101 Thornton/Adjusted Body Weight IBW: 160#/73 kg Weight Status Appropriate Estimated Energy Expenditure (kcals/day) 7186-2348 kcal/day (30-35 kcal/kg CBW d/t sepsis) Estimated Protein Required (g/day) 89-111 gm/day (1.2-1.5 gm/kg CBW d/t sepsis, ESRD/HD) Estimated Fluid Required (l/day) Per physician d/t ESRD Problem/Etiology/Signs/Symptoms Increased nutritional needs related to metabolic demands as evidenced by estimated nutritional requirements for sepsis. *ongoing Altered nutrition-related labs related to renal dysfunction as evidenced by abnormal Na, BUN, and CRE lab values. *ongoing Expected Outcomes/Goals - Monitor tolerance to EN support w/ goal of pt meeting at least 80% of estimated nutritional needs, labs trending WNL, normal GI function, and skin integrity/wt maintenance Dietitian Recommendations * Continue Nepro at 49 ml/hr via GT Provides: 2117 kcal/day, 95 gm protein/day, and 855 ml free water/day Meets: 95% of lower end of estimated caloric needs and 86% of upper end of estimated protein needs * Physician to clarify Free Water Flush order Follow Up High Risk: F/U in 2-3 days
--- NOTE | 2021-03-17 18:49 | NUR ---
Dietitian Recommendations * Continue Nepro at 49 ml/hr via GT Provides: 2117 kcal/day, 95 gm protein/day, and 855 ml free water/day Meets: 95% of lower end of estimated caloric needs and 86% of upper end of estimated protein needs * Physician to clarify Free Water Flush order LP, RD Please refer to Nutrition F/U for details.
--- NOTE | 2021-03-17 19:05 | NUR ---
RECEIVED BEDSIDE REPORT. PT AWAKE IN BED. RR EVEN AND UNLABORED ON RA. TUBE FEEDING RUNNING. HOB ELEVATED. BED RAILS UPX3. BED ALARM ON. CALL LIGHT WITHIN REACH. WILL CONTINUE TO MONITOR.
[2021-03-17] MEDS: ATORVASTATIN 20 MG TABLET GT SCH (20:12)
[2021-03-17 20:13] VITALS: BP_SYST 108
--- NOTE | 2021-03-17 20:45 | NUR ---
Patient is laying in bed. 2nd Blood transfusion started. checked with 2nd nurse. 300ml rbc. o positive. donor number [id number]. pt band# [id number]. pt tolerating well. Pre-transfusion vital signs within normal limits. Will continue to monitor
[2021-03-18 02:07] VITALS: BP_SYST 90
[2021-03-18 02:47] VITALS: BP_SYST 104
--- NOTE | 2021-03-18 06:22 | NUR ---
PT HAD LARGE BLACK LOOSE STOOL. STOOL COLLECTED AND SENT TO THE LAB.
[2021-03-18 07:47] LABS: BASOPHILS % (AUTO) 0.3 % (0.0-2.0); EOSINOPHILS # (AUTO) 0.1 K/uL (0.0-0.4); EOSINOPHILS % (AUTO) 1.2 % (0.0-4.0); LYMPHOCYTES # (AUTO) 0.9 K/uL (1.0-5.5); LYMPHOCYTES % (AUTO) 10.1 % (20.5-51.5); MEAN CORPUSCULAR HEMOGLOBIN 34 pg (27-31); MEAN CORPUSCULAR HGB CONC 35 % (32-36); MEAN CORPUSCULAR VOLUME 96 fL (79.0-98.0); MONOCYTES # (AUTO) 0.4 K/uL (0.0-1.0); MONOCYTES % (AUTO) 4.3 % (1.7-9.3); NEUTROPHILS # (AUTO) 7.9 K/uL (1.8-7.7); NEUTROPHILS % (AUTO) 84.1 % (40.0-70.0); PLATELET COUNT (AUTO) 103 K/uL (130-430); RED CELL DISTRIBUTION WIDTH 16.9 % (9.0-15.0); WHITE BLOOD COUNT (AUTO) 9.4 K/uL (4.8-10.8)
[2021-03-18 08:00] VITALS: BP_SYST 114
--- NOTE | 2021-03-18 08:00 | NUR ---
OPENING NOTE ALERT TO NAME, DATE AND PLACE. DENIES ANY PAIN. NO SHORTNESS OF BREATH ON ROOM AIR. CRACKLES ON BOTH LUNGS. PRODUCTIVE COUGH WITH MINIMAL, CLEAR PHLEGM. IV ON RIGHT FOREARM INTACT. TOLERATING TUBE FEEDING AT 49ML/HR; 5 ML BROWNISH RESIDUAL. FEEDING HELD FOR NOW. PATIENT WILL HAVE AN ABDOMINAL ULTRASOUND ORDERED. PLAN OF CARE EXPLAINED TO PATIENT. SAFETY CHECKS DONE. CALL LIGHT WITHIN REACH. WILL MONITOR.
[2021-03-18] MEDS: LORATADINE 10 MG TABLET GT SCH (08:56)
[2021-03-18] MEDS: GABAPENTIN 100 MG CAPSULE GT SCH ×3 (08:56→22:10)
[2021-03-18] MEDS: FOLIC ACID 1 MG TABLET GT SCH (08:56)
[2021-03-18] MEDS: ALLOPURINOL 100 MG TABLET (ZYLOPRIM) GT SCH (08:56)
[2021-03-18] MEDS: NEPHROVITE, (FOLIC ACID/VITAMIN B COMP W-C 1 TAB) GT SCH (08:56)
[2021-03-18] MEDS: LINEZOLID 300 ML IV SCH ×2 (08:58→20:29)
[2021-03-18] MEDS: METOPROLOL TARTRATE 25 MG TABLET PO SCH ×2 (09:00→22:11)
[2021-03-18 09:11] LABS: RED BLOOD CELL COUNT(AUTO) 1.97 MIL/uL (4.2-6.2)
[2021-03-18 09:20] LABS: HEMOGLOBIN 6.6 g/dL (14.0-18.0)
[2021-03-18 09:21] LABS: HEMATOCRIT 18.9 % (36-54)
--- NOTE | 2021-03-18 11:53 | NUR ---
ROUNDS PATIENT IS AWAKE. NO COMPLAINS OF PAIN OR SHORTNESS OF BREATH. FAMILY AT BEDSIDE, EXPLAINED PLAN OF CARE TO PATIENT'S DAUGHTER, CHRISTINA. SAFETY CHECKS DONE.
[2021-03-18 12:00] VITALS: BP_SYST 109
--- NOTE | 2021-03-18 12:45 | NUR ---
ABDOMINAL ULTRASOUND DONE. FEEDINGS RESUMED. ASPIRATION PREC IN PLACE. SAFETY CHECKS DONE. WILL MONITOR.
--- NOTE | 2021-03-18 13:55 | NUR ---
SPOKE WITH HEMODIALYSIS NURSE SPOKE WITH YANNI NEW ON THE PHONE AND SHE SAID THAT THE HEMODIALYSIS TREATMENT WAS COMPLETED YESTERDAY, ONLY THERE WAS NO FLUID PULLED OUT BECAUSE THE BLOOD PRESSURE IS LOW. PAGED DR. GALAN TO CLARIFY TODAY'S ORDERED BLOOD TRANSFUSION WITH HEMODIALYSIS.
--- NOTE | 2021-03-18 14:09 | NUR ---
SPOKE WITH DR. Azul GALAN MD SAID BLOOD MAY BE TRANSFUSED NOW, NO NEED TO WAIT FOR DIALYSIS. HE WILL DECIDE IF HD IS NEEDED LATER ONCE BLOOD TEST RESULTS ARE OUT.
--- NOTE | 2021-03-18 14:50 | NUR ---
BT INITIATION: Consent signed per patient agreeing to administration of blood. Blood has been type and crossmatched. Blood sent from blood bank. Information on unit of blood checked against patient wristband at bedside by two nurses. All information matches. Patient or responsible constitution party informed of potential complications associated with blood transfusion. Informed of possible transfusion reaction symptoms. Aware of need to notify nurse at once of itching, shortness of breath, flushing, feeling of impending doom, or other symptoms not previously present. Vital signs taken within 5 minutes prior to initiation of transfusion. RN will remain with patient for first 15 minutes of transfusion at which time vital signs will be re-assessed.
[2021-03-18 16:17] VITALS: BP_SYST 121
--- NOTE | 2021-03-18 18:43 | NUR ---
CLOSING NOTE BLOOD TRANSFUSION ENDED AT 1800. PATIENT TOLERATED BLOOD TRANSFUSION WELL. TOLERATED TUBE FEEDING. ALL NEEDS MET THROUGHOUT SHIFT. SAFETY CHECKS DONE. CALL LIGHT WITHIN REACH. WILL ENDORSE TO NIGHT NURSE.
--- NOTE | 2021-03-18 19:00 | NUR ---
RECEIVED BEDSIDE REPORT FROM RN. PT IN BED RESTING. PT EDUCATED TO USE CALL LIGHT IF HE NEEDS ASSISTANCE. CALL LIGHT WITHIN REACH. BED ALARM ON. BED RAILS UPX2. WILL CONTINUE TO MONITOR.
--- NOTE | 2021-03-18 20:00 | NUR ---
PT HAD LARGE LOOSE BLACK STOOL. STOOL SAMPLE SENT TO LAB.
[2021-03-18 20:29] LABS: BASOPHILS % (AUTO) 0.2 % (0.0-2.0); HEMOGLOBIN 7.4 g/dL (14.0-18.0); MONOCYTES # (AUTO) 0.3 K/uL (0.0-1.0)
[2021-03-18 20:37] LABS: EOSINOPHILS % (AUTO) 0.2 % (0.0-4.0); LYMPHOCYTES # (AUTO) 0.8 K/uL (1.0-5.5); LYMPHOCYTES % (AUTO) 11.7 % (20.5-51.5); MEAN CORPUSCULAR HEMOGLOBIN 31 pg (27-31); MEAN CORPUSCULAR HGB CONC 34 % (32-36); NEUTROPHILS # (AUTO) 5.3 K/uL (1.8-7.7); NEUTROPHILS % (AUTO) 82.9 % (40.0-70.0); PLATELET COUNT (AUTO) 95 K/uL (130-430); RED CELL DISTRIBUTION WIDTH 19.6 % (9.0-15.0); WHITE BLOOD COUNT (AUTO) 6.4 K/uL (4.8-10.8)
[2021-03-18 20:40] LABS: HEMATOCRIT 21.9 % (36-54)
[2021-03-18 20:41] LABS: MEAN CORPUSCULAR VOLUME 91 fL (79.0-98.0)
[2021-03-18 20:54] LABS: ANION GAP 15 (5-15); CHLORIDE 99 mmol/L (98-107); GLUCOSE 109 mg/dL (70-99); POTASSIUM 3.9 mmol/L (3.5-5.1); SODIUM SERUM 137 mmol/L (136-145)
[2021-03-18 20:55] LABS: ALANINE AMINOTRANSFERASE 803 U/L (12-78); ASPARTATE AMINOTRANSFERASE 592 U/L (10-37); CALCIUM 7.9 mg/dL (8.4-11.0); TOTAL BILIRUBIN 1.1 mg/dL (0.0-1.0)
[2021-03-18 20:56] LABS: ALBUMIN 2.9 g/dL (3.4-4.8)
[2021-03-18 20:57] LABS: UREA NITROGEN, BLOOD 102 mg/dL (8-21)
--- NOTE | 2021-03-18 21:37 | NUR ---
DR REYES NOTIFIED OF CRITICAL LAB VALUES. NO ADDITIONAL ORDERS
[2021-03-18] MEDS: ATORVASTATIN 20 MG TABLET GT SCH (22:10)
[2021-03-18 22:11] VITALS: BP_SYST 132
--- NOTE | 2021-03-19 00:15 | NUR ---
HEMODIALYSIS completed at the bedside AV SHUNT LEFT UPPER ARM SITE CLEAN NO BLEEDING .
[2021-03-19 01:47] VITALS: BP_SYST 124
--- NOTE | 2021-03-19 02:45 | NUR ---
BLOOD TRANSFUSION STARTED PER ORDERS. PT EDUCATED ON NEED FOR BLOOD. BLOOD VERIFIED WITH SECOND RN. PT RECEIVING 1 PRBC O POSITIVE. DONOR #[id number]. PT BP 122/65 HR 111 PRE TRANSFUSION. RN WILL STAY WITH PT FOR FIRST 15 MINUTES TO MONITOR PT.
--- NOTE | 2021-03-19 06:59 | NUR ---
BLOOD TRANSFUSION COMPLETED. PT TOLERATED WELL. NO ADVERSE REACTIONS.
--- NOTE | 2021-03-19 07:25 | NUR ---
ENDORSED CARE TO DAY RN. MADE AWARE OF BLOOD TRANSFUSION COMPLETED AND LAB DRAW TO BE DONE TO CHECK HGT/HCT.
[2021-03-19 07:58] VITALS: BP_SYST 143
[2021-03-19 08:10] LABS: BASOPHILS % (AUTO) 0.7 % (0.0-2.0); EOSINOPHILS % (AUTO) 0.2 % (0.0-4.0); HEMATOCRIT 26.4 % (36-54); HEMOGLOBIN 8.9 g/dL (14.0-18.0); LYMPHOCYTES # (AUTO) 0.9 K/uL (1.0-5.5); LYMPHOCYTES % (AUTO) 14.6 % (20.5-51.5); MEAN CORPUSCULAR HEMOGLOBIN 31 pg (27-31); MEAN CORPUSCULAR HGB CONC 34 % (32-36); MEAN CORPUSCULAR VOLUME 91 fL (79.0-98.0); MONOCYTES # (AUTO) 0.3 K/uL (0.0-1.0); MONOCYTES % (AUTO) 4.9 % (1.7-9.3); NEUTROPHILS # (AUTO) 5.1 K/uL (1.8-7.7); NEUTROPHILS % (AUTO) 79.6 % (40.0-70.0); PLATELET COUNT (AUTO) 91 K/uL (130-430); RED BLOOD CELL COUNT(AUTO) 2.91 MIL/uL (4.2-6.2); RED CELL DISTRIBUTION WIDTH 18.4 % (9.0-15.0); WHITE BLOOD COUNT (AUTO) 6.3 K/uL (4.8-10.8)
--- NOTE | 2021-03-19 08:15 | NUR ---
AM BLOOD DRAW DONE BY [employer].
[2021-03-19 08:29] LABS: PROTHROMBIN TIME 10.4 SECS (9.5-12.5)
[2021-03-19 09:00] LABS: ALANINE AMINOTRANSFERASE 698 U/L (12-78); ALBUMIN 2.8 g/dL (3.4-4.8); ANION GAP 14 (5-15); ASPARTATE AMINOTRANSFERASE 388 U/L (10-37); BILIRUBIN,DIRECT 0.4 mg/dL (0.0-0.3); CALCIUM 8.6 mg/dL (8.4-11.0); CHLORIDE 98 mmol/L (98-107); CREATININE 6.16 mg/dL (0.55-1.30); GLUCOSE 116 mg/dL (70-99); SODIUM SERUM 136 mmol/L (136-145)
[2021-03-19 09:05] LABS: TOTAL IRON BIND. CAPACITY 206 ug/dL (250-450)
[2021-03-19 09:29] LABS: UREA NITROGEN, BLOOD 110 mg/dL (8-21)
[2021-03-19] MEDS: LINEZOLID 300 ML IV SCH ×2 (09:50→22:17)
[2021-03-19] MEDS: FOLIC ACID 1 MG TABLET GT SCH (09:50)
[2021-03-19] MEDS: ALLOPURINOL 100 MG TABLET (ZYLOPRIM) GT SCH (09:50)
[2021-03-19] MEDS: GABAPENTIN 100 MG CAPSULE GT SCH ×3 (09:50→22:15)
[2021-03-19] MEDS: NEPHROVITE, (FOLIC ACID/VITAMIN B COMP W-C 1 TAB) GT SCH (09:50)
[2021-03-19] MEDS: LORATADINE 10 MG TABLET GT SCH (09:50)
[2021-03-19] MEDS: METOPROLOL TARTRATE 25 MG TABLET PO SCH ×2 (09:51→22:16)
--- NOTE | 2021-03-19 12:00 | NUR ---
PT HAD 1 BLACK TARRY STOOL. ASSISTED ASHLEY POPE. SAMPLE SENT TO LAB FOR #2 OB.
--- NOTE | 2021-03-19 12:44 | NUR ---
Discharge Planning: DCP faxed pt referral to [facility] [phone] DCP to follow up Addendum: 03/19/21 at 1328 by Trisha Mae DP [facility] [phone]
[2021-03-19 12:56] VITALS: BP_SYST 133
--- NOTE | 2021-03-19 15:00 | NUR ---
DR DUKES WAS HERE AND HE SP[FLAQUITO WITH PT'S FAMILY RE PLAN FOR EGD/COLONOSCOPY, MD SAID THEY ARE STILL GOING TO DECIDE.
[2021-03-19 17:32] VITALS: BP_SYST 77
--- NOTE | 2021-03-19 18:00 | NUR ---
PT STILL HAVING HD. BUN/CREA ELEVATED.
--- NOTE | 2021-03-19 19:27 | NUR ---
PT ENDORSED TO NIGHT NURSE.
[2021-03-19 20:15] VITALS: BP_SYST 129
--- NOTE | 2021-03-19 20:15 | NUR ---
HEMODIALYSIS completed at the bedside AV SHUNT LEFT UPPER ARM SITE CLEAN NO BLEEDING NOTED .
[2021-03-19] MEDS: ATORVASTATIN 20 MG TABLET GT SCH (22:16)
[2021-03-19] MEDS: PANTOPRAZOLE SODIUM 40 MG/VIAL (PROTONIX) IVP SCH (22:17)
[2021-03-20 00:05] VITALS: BP_SYST 103
--- NOTE | 2021-03-20 00:54 | NUR ---
HOURLY Rounding medium stool noted , partial bed bath given kept clean also dry as needed call ny given to patient / .
[2021-03-20 08:14] VITALS: BP_SYST 109
[2021-03-20] MEDS: NEPHROVITE, (FOLIC ACID/VITAMIN B COMP W-C 1 TAB) GT SCH (08:51)
[2021-03-20] MEDS: GABAPENTIN 100 MG CAPSULE GT SCH ×3 (08:51→22:51)
[2021-03-20] MEDS: METOPROLOL TARTRATE 25 MG TABLET PO SCH ×2 (08:51→21:00)
[2021-03-20] MEDS: PANTOPRAZOLE SODIUM 40 MG/VIAL (PROTONIX) IVP SCH ×2 (08:51→22:52)
[2021-03-20] MEDS: LINEZOLID 300 ML IV SCH ×2 (08:51→22:51)
[2021-03-20] MEDS: LORATADINE 10 MG TABLET GT SCH (08:51)
[2021-03-20] MEDS: ALLOPURINOL 100 MG TABLET (ZYLOPRIM) GT SCH (08:51)
[2021-03-20] MEDS: FOLIC ACID 1 MG TABLET GT SCH (08:51)
--- NOTE | 2021-03-20 09:00 | NUR ---
Dr christianson is here and seen pt. made aware that pt is still having diarrhea and black tarry stool, told md that pt had 3x diarrhea last night and 1 this am. md said that he is waiting for family to decide if they want to go ahead with colonoscopy/egd.
[2021-03-20 13:24] VITALS: BP_SYST 110
--- NOTE | 2021-03-20 15:42 | NUR ---
PT GIVEN PM , MEDS VIA G-TUBE, NO RESIDUAL NOTED.
[2021-03-20 16:19] VITALS: BP_SYST 100
[2021-03-20] MEDS: EPOETIN ALFA 10,000 UNITS/ML VIAL SUBCUT SCH (17:26)
--- NOTE | 2021-03-20 18:31 | NUR ---
PT HAS BEEN STABLE THE WHOLE SHIFT, CONTINUE TO HAVE LOOSE BLACK BM. HAD URINE INCONTINENCE. HD PLANNED FOR AM. WILL ENDORSE TO NIGHT NURSE.
[2021-03-20] MEDS: ATORVASTATIN 20 MG TABLET GT SCH (22:51)
[2021-03-21 00:22] VITALS: BP_SYST 101
[2021-03-21 06:51] LABS: BASOPHILS % (AUTO) 0.3 % (0.0-2.0); EOSINOPHILS # (AUTO) 0.1 K/uL (0.0-0.4); HEMATOCRIT 24.6 % (36-54); HEMOGLOBIN 8.5 g/dL (14.0-18.0); LYMPHOCYTES # (AUTO) 1.3 K/uL (1.0-5.5); LYMPHOCYTES % (AUTO) 19.3 % (20.5-51.5); MEAN CORPUSCULAR HEMOGLOBIN 31 pg (27-31); MEAN CORPUSCULAR HGB CONC 34 % (32-36); MEAN CORPUSCULAR VOLUME 90 fL (79.0-98.0); MONOCYTES # (AUTO) 0.3 K/uL (0.0-1.0); MONOCYTES % (AUTO) 4.6 % (1.7-9.3); NEUTROPHILS % (AUTO) 74.8 % (40.0-70.0); PLATELET COUNT (AUTO) 87 K/uL (130-430); RED BLOOD CELL COUNT(AUTO) 2.73 MIL/uL (4.2-6.2); RED CELL DISTRIBUTION WIDTH 18.6 % (9.0-15.0); WHITE BLOOD COUNT (AUTO) 6.7 K/uL (4.8-10.8)
[2021-03-21 07:12] LABS: ANION GAP 12 (5-15); CALCIUM 8.4 mg/dL (8.4-11.0); CHLORIDE 98 mmol/L (98-107); CREATININE 5.89 mg/dL (0.55-1.30); GLUCOSE 108 mg/dL (70-99); POTASSIUM 4.1 mmol/L (3.5-5.1); SODIUM SERUM 135 mmol/L (136-145); UREA NITROGEN, BLOOD 96 mg/dL (8-21)
[2021-03-21 08:00] VITALS: BP_SYST 122
[2021-03-21] MEDS: METOPROLOL TARTRATE 25 MG TABLET PO SCH ×2 (09:00→22:12)
--- NOTE | 2021-03-21 10:45 | NUR ---
CM: CALL PLACED TO OFFICE REGARDING REQUEST FOR VRE TO BE COLONIZED BEFORE PATIENT WILL BE ACCEPTED FOR TRANSFER TO [facility], MESSAGE LEFT WITH EXCHANGE, AWAITING CALL BACK.
[2021-03-21 11:32] VITALS: BP_SYST 117
[2021-03-21] MEDS: NEPHROVITE, (FOLIC ACID/VITAMIN B COMP W-C 1 TAB) GT SCH (13:57)
[2021-03-21] MEDS: ALLOPURINOL 100 MG TABLET (ZYLOPRIM) GT SCH (13:57)
[2021-03-21] MEDS: LINEZOLID 300 ML IV SCH ×2 (13:57→22:11)
[2021-03-21] MEDS: LORATADINE 10 MG TABLET GT SCH (13:57)
[2021-03-21] MEDS: FOLIC ACID 1 MG TABLET GT SCH (13:57)
[2021-03-21] MEDS: GABAPENTIN 100 MG CAPSULE GT SCH ×3 (13:57→22:12)
[2021-03-21] MEDS: PANTOPRAZOLE SODIUM 40 MG/VIAL (PROTONIX) IVP SCH ×2 (13:58→22:12)
[2021-03-21 15:32] VITALS: BP_SYST 116
--- NOTE | 2021-03-21 16:00 | NUR ---
NURSING NOTES 7AM-4PM: 0725 AM: PATIENT IS RESTING IN BED QUIETLY. NO ADDITIONAL DISTRESS NOTED. CALL LIGHT WITHIN REACH. BED IN LOW AND LOCK POSITION. BED ALARM ON. FEEDING TUBE VIA PEG INFUSING AT 49CC/HR. HOB 30 DEGREE. STABLE CONDITION AT THIS TIME. WILL CONT TO MONITOR. 0800AM: PATIENT IS RESTING IN BED. EXPLAINED PLAN OF CARE AND HE VERBALIZED UNDERSTANDING. PATIENT IS AAOX4, ABLE TO MAKE NEEDS KNOWN. WILL CONT TO MONITOR. 0900AM: HD NURSE AT BEDSIDE. 1000AM: HD INFUSING. PATIENT IS ASLEEP. NO ADDITIONAL DISTRESS NOTED. WILL CONT TO MONITOR. 1200PM: HD INFUSING. PATIENT IS RESTING IN BED, ASLEEP. NO ADDITIONAL DISTRESS NOTED. WILL CONT TO MONITOR. 1330: HD ENDED. PATIENT IS AWAKE RESTING IN BED WATCHING TV. STABLE CONDITION. WILL CONT TO MONITOR. 1357: ALL AM MEDICATION AT THIS TIME DUE TO PATIENT WAS ON HD. STABLE AT THIS TIME. WILL CONT TO MONITOR. 1400: CHG BATH, MOUTH/FACE WASH, SHAMPOOED, LINEN AND GOWN CHANGED. 1600: PATIENT IS RESTING IN BED, ASLEEP. STABLE AT THIS TIME.
--- NOTE | 2021-03-21 17:00 | NUR ---
DM EDUCATION: SPOKE WITH PATIENT AND GAVE DM EDUCATION: PATHO, LIFESTYLE AND COMPLIANT WITH MEDICATION FOR 20 MINUTES. PATIENT VERBALIZED UNDERSTANDING. Addendum: 03/21/21 at 1917 by Chip structural engineering technician WRONG PATIENT
--- NOTE | 2021-03-21 17:58 | NUR ---
Dietitian Recommendations * Continue Nepro at 49 ml/hr via GT Provides: 2117 kcal/day, 95 gm protein/day, and 855 ml free water/day Meets: 95% of lower end of estimated caloric needs and 86% of upper end of estimated protein needs * Physician to clarify Free Water Flush order * Consider Banana flake 1 pkt TID to help bulk stools. Please refer to nutrition assessment for details.
--- NOTE | 2021-03-21 17:58 | NUR ---
Nutrition F/U RD reviewed pt's current EMR record including diet Hx, physician notes, nursing notes, pertinent labs/meds/procedures, care trends, and care activity. Admission Dx: Sepsis and pyelonephritis PMH: ESRD on HD, HTN, HLD, gout per physician notes SARS-CoV-2 Ag (Rapid) Negative 03/08 Current Diet Order/Nutrition Support: Nepro at 49 ml/hr, Free Water Flush: 150 via GT x13 days Subjective Info: RD visit pt at bedside. Per EMR review, BM x 4 today with diarrhea and loose black color, pending family consent for colonoscopy/EGD, HD is schedule today morning; Pt may benefit from Banatrol to help bulk stools. Abdomen is soft, non-distended. Domingo score 17, with intact skin, and no edema noted. No GRV noted today; pt appears to be tolerating TF well. 4 lbs weight gain in 4 days. Na lab value is low, w/ HD status, current FWF providing 3600ml, may benefit from re-eval to prevent fluid overload. Current TF prescription is adequate/appropriate. Pertinent Medications: protonix IV, linezolid, Lopressor, Nephrovite, folic acid, Lipitor, neurotin, colace. Pertinent Labs: (03/21) Na: 135L , BUN: 96H , Cr: 5.89H , Glu: 108H Height (Feet) 5 feet Height (Inches) 9.00 inches Patient Weight 167# / 75.75 kg (03/21/2021) Body Mass Index 24.07 kg/m2 %IBW 101 [place]rick/Adjusted Body Weight IBW: 160#/73 kg Weight Status Appropriate Estimated Energy Expenditure (kcals/day) 7651-2882 kcal/day (30-35 kcal/kg CBW d/t sepsis) Estimated Protein Required (g/day) 89-111 gm/day (1.2-1.5 gm/kg CBW d/t sepsis, ESRD/HD) Estimated Fluid Required (l/day) Per physician d/t ESRD Problem/Etiology/Signs/Symptoms Increased nutritional needs related to metabolic demands as evidenced by estimated nutritional requirements for sepsis. *ongoing Altered nutrition-related labs related to renal dysfunction as evidenced by abnormal Na, BUN, and CRE lab values. *ongoing Expected Outcomes/Goals - Monitor tolerance to EN support w/ goal of pt meeting at least 80% of estimated nutritional needs, labs trending WNL, normal GI function, and skin integrity/wt maintenance Dietitian Recommendations * Continue Nepro at 49 ml/hr via GT Provides: 2117 kcal/day, 95 gm protein/day, and 855 ml free water/day Meets: 95% of lower end of estimated caloric needs and 86% of upper end of estimated protein needs * Physician to clarify Free Water Flush order * Consider Banana flake 1 pkt TID to help bulk stools. Follow Up High Risk: F/U in 2-3 days
--- NOTE | 2021-03-21 18:50 | NUR ---
NURSING NOTES 5PM-1900: 1800: PATIENT IS RESTING IN BED ASLEEP. NO ADDITIONAL DISTRESS NOTED. WILL CONT TO MONITOR. 184: PATIENT HAD 1 LARGE LOOSE BLACK STOOL BM. ALL BED LINEN AND CHUCKS CHANGED. APPLIED BARRIER CREAM TO BUTTOCKS. 1850: TF INFUSING NEPHRO AT 49CC/HR. HOB 30<. NO RESIDUALS. FLUSHED GT WITH H20 150CC Q6HRS. TOLERATE FEEDING AT THIS TIME. PATIENT STILL URINATES. NO ADDITIONAL DISTRESS NOTED. STABLE CONDITION THROUGHOUT THE SHIFT. WILL CONT TO MONITOR.
[2021-03-21 22:06] VITALS: BP_SYST 115
[2021-03-21] MEDS: ATORVASTATIN 20 MG TABLET GT SCH (22:12)
--- NOTE | 2021-03-22 | NUR ---
TRANSFER OF CARE RECEIVED REPORT FROM CHON DOZIER. PATIENT RESTING, NO RESPIRATORY DISTRESS NOTED. CALL LIGHT WITHIN REACH, BED ALARM ON, BED AT LOWEST POSITION, BED LOCKED. FALL, RESPIRATORY, ASPIRATION, ISOLATION AND SAFETY PRECAUTIONS IN PLACE. PLAN OF CARE DISCUSSED WITH PATIENT. WILL CONTINUE TO MONITOR.
[2021-03-22] MEDS ORDERED: COMMUNICATION ORDER XX ONE (01:45)
[2021-03-22 01:51] VITALS: BP_SYST 106
--- NOTE | 2021-03-22 06:37 | NUR ---
CLOSING NOTES PATIENT RESTING, NO DISTRESS NOTED, HOB ELEVATED. CALL LIGHT WITHIN REACH, BED ALARM ON, BED AT LOWEST POSITION, BED LOCKED. FALL, RESPIRATORY, ASPIRATION, ISOLATION AND SAFETY PRECAUTIONS IN PLACE THROUGHOUT SHIFT. ALL NEEDS MET THROUGHOUT SHIFT. WILL ENDORSE CARE TO ONCOMING SHIFT.
[2021-03-22] MEDS: METOPROLOL TARTRATE 25 MG TABLET PO SCH (09:00)
--- NOTE | 2021-03-22 09:00 | NUR ---
DUE MEDS GIVEN AT THIS TIME.
[2021-03-22] MEDS: PANTOPRAZOLE SODIUM 40 MG/VIAL (PROTONIX) IVP SCH (09:33)
[2021-03-22] MEDS: GABAPENTIN 100 MG CAPSULE GT SCH (09:33)
[2021-03-22] MEDS: ALLOPURINOL 100 MG TABLET (ZYLOPRIM) GT SCH (09:34)
[2021-03-22] MEDS: LORATADINE 10 MG TABLET GT SCH (09:34)
[2021-03-22] MEDS: FOLIC ACID 1 MG TABLET GT SCH (09:34)
[2021-03-22] MEDS: NEPHROVITE, (FOLIC ACID/VITAMIN B COMP W-C 1 TAB) GT SCH (09:34)
--- NOTE | 2021-03-22 09:38 | NUR ---
DUE MEDS GIVEN WITH WATER.
[2021-03-22 09:39] VITALS: BP_SYST 100
--- NOTE | 2021-03-22 09:47 | NUR ---
Discharge Planning: DCP followed up with Nara at [facility] P [phone] DCP faxed doctors note colonizing VRE. DCP was given Rm 7C and made CM aware. Pending DC order. Addendum: 03/22/21 at 1021 by Trisha Mae DP Patient will transport BLS with [facility] [phone] 1:30pm-2:00pm to [facility] P [phone]. DCP made nurse aware, pt packet taken to nurse station. Addendum: 03/22/21 at 1022 by Trisha Mae DP Deposition 03
--- NOTE | 2021-03-22 10:00 | NUR ---
CALLED DR REYES FOR DISCHARGE ORDER TO [facility]
--- NOTE | 2021-03-22 12:00 | NUR ---
MADE COMFORTABLE. [facility]ON CARE DONE.
[2021-03-22 12:11] VITALS: BP_SYST 98
--- NOTE | 2021-03-22 12:30 | NUR ---
SBAR REPORT GIVEN TO NNEKA DOZIER FROM [facility].
[2021-03-22 12:41] VITALS: BP_SYST 96
--- NOTE | 2021-03-22 13:00 | NUR ---
IV ACCESS REMOVED. [facility] I D BAND REMOVED. DISCHARGE SUMMARY DONE.
--- NOTE | 2021-03-22 14:45 | NUR ---
DISCHARGE SUMMARY GIVEN TO [facility]. SBAR ENDORSED TO EMT ADALBERTO. PATIENT GOING TO [facility] ROOM 7-C.
[2021-03-27 08:12] LABS: FOLATE (FOLIC ACID) >20.0 ng/mL (>3.0)
[2021-03-27 08:52] LABS: FERRITIN 8843 ng/mL (30-400)
== END 2021-03-22 14:45 | DRG 871 ==
LOC: SED 18:40 → STU 22:04 → SMU 03-22 13:19
PROVIDERS: ADMIT Internal Medicine; ATTEND Internal Medicine
PROC: 5A1D70Z Performance of Urinary Filtration, Intermittent, Less than 6 Hours Per Day (ICD-10-PCS; 2021-03-10)
PROC: 30233N1 Transfusion of Nonautologous Red Blood Cells into Peripheral Vein, Percutaneous Approach (ICD-10-PCS; principal; 2021-03-11)
PROC: 5A1D70Z Performance of Urinary Filtration, Intermittent, Less than 6 Hours Per Day (ICD-10-PCS; 2021-03-11)
PROC: 5A1D70Z Performance of Urinary Filtration, Intermittent, Less than 6 Hours Per Day (ICD-10-PCS; 2021-03-13)
PROC: 5A1D70Z Performance of Urinary Filtration, Intermittent, Less than 6 Hours Per Day (ICD-10-PCS; 2021-03-15)
PROC: 5A1D70Z Performance of Urinary Filtration, Intermittent, Less than 6 Hours Per Day (ICD-10-PCS; 2021-03-16)
PROC: 5A1D70Z Performance of Urinary Filtration, Intermittent, Less than 6 Hours Per Day (ICD-10-PCS; 2021-03-19)
PROC: 5A1D70Z Performance of Urinary Filtration, Intermittent, Less than 6 Hours Per Day (ICD-10-PCS; 2021-03-21)
DX: A41.81 Sepsis due to Enterococcus (principal); N18.6 End stage renal disease; J18.9 Pneumonia, unspecified organism; N39.0 Urinary tract infection, site not specified; I12.0 Hypertensive chronic kidney disease with stage 5 chronic kidney disease or end stage renal disease; J44.0 Chronic obstructive pulmonary disease with (acute) lower respiratory infection; Z16.21 Resistance to vancomycin; D62 Acute posthemorrhagic anemia; K92.2 Gastrointestinal hemorrhage, unspecified; D50.9 Iron deficiency anemia, unspecified; D63.1 Anemia in chronic kidney disease; E11.22 Type 2 diabetes mellitus with diabetic chronic kidney disease; Z20.822 Contact with and (suspected) exposure to COVID-19; E78.5 Hyperlipidemia, unspecified; F03.90 Unspecified dementia, unspecified severity, without behavioral disturbance, psychotic disturbance, mood disturbance, and anxiety; E11.42 Type 2 diabetes mellitus with diabetic polyneuropathy; M10.9 Gout, unspecified; Z93.1 Gastrostomy status; Z99.2 Dependence on renal dialysis; Z79.899 Other long term (current) drug therapy
CPT/HCPCS: 36415; 36430; 71045; 76700-TC; 80048; 80053; 80076; 80202; 81000; 82272; 82607; 82728; 82746; 83540; 83550; 83605; 83735; 84100; 84550; 85007; 85025; 85027; 85610-TC; 85730-TC; 86870; 86886; 86900; 86901; 86920; 87040-TC; 87081; 87086; 87186-TC; 90935; 90937; 96365; 96368; 99285; C9113; G0378; J0696; J0885; J2020; J2543; J3370; J7050; P9021